=== PATIENT | female | born 1985 | race Caucasian/White ===

== ENCOUNTER 2019-06-14 20:11 | Emergency (ER) | payer SELFPAY ==
[2019-06-14 21:09] LABS: Urine Bacteria <20 /HPF (<20)
[2019-06-14 21:10] LABS: Urine Blood 1+ (NEG); Urine Glucose NEGATIVE (NEG); Urine Protein NEGATIVE (NEG)
[2019-06-14] MEDS ORDERED: ERYTHROMYCIN 1 APPL/1 GM TUBE ONE (21:10)
--- NOTE | 2019-06-14 21:29 | EDPHYS ---
Physician Documentation [facility] Name: Padma Mauricio Age: 34 yrs Sex: Female : 1985 Arrival Date: 06/14/2019 Time: 20:14 Bed 5 Private MD: TINA Physician Curtis Hawkins HPI: 06/14 20:35 This 34 yrs old Female presents to ER via Ambulatory with complaints of Flu snw Symptoms. 20:35 Onset: The symptoms/episode began/occurred suddenly, today. Associated signs and snw symptoms: Pertinent positives: congestion, cough, fever, nasal discharge, sore throat. Modifying factors: The patient symptoms are alleviated by nothing. The patient has not experienced similar symptoms in the past. The patient has not recently seen a physician. 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 - Social history:: Smoking status: Patient/guardian denies using tobacco, Stopped _ months ago 2. - Ebola Screening: : Patient negative for fever greater than or equal to 101.5 degrees Fahrenheit, and additional compatible Ebola Virus Disease symptoms Patient denies exposure to infectious person Patient denies travel to an Ebola-affected area in the 21 days before illness onset No symptoms or risks identified at this time. ROS: 20:34 ENT: Negative for injury, pain, and positive for congestion and discharge, Neck: snw Negative for injury, pain, and swelling, Cardiovascular: Negative for chest pain, palpitations, and edema, Respiratory: Negative for shortness of breath, cough, wheezing, and pleuritic chest pain, Abdomen/GI: Negative for abdominal pain, nausea, vomiting, diarrhea, and constipation, Back: Negative for injury and pain, : Negative for injury, bleeding, discharge, and swelling, MS/Extremity: Negative for injury and deformity, Skin: Negative for injury, rash, and discoloration, Neuro: Negative for headache, weakness, numbness, tingling, and seizure, Psych: Negative for depression, anxiety, suicide ideation, homicidal ideation, and hallucinations. 20:34 Constitutional: Positive for body aches, fatigue, fever, malaise. 20:34 Eyes: Positive for matting, redness, of the inner aspect of conjuctiva of right eye, (hx of contact use). Exam: 20:32 Head/Face: Normocephalic, atraumatic. snw 20:32 ENT: Nares patent. No nasal discharge, no septal abnormalities noted. Tympanic membranes are normal and external auditory canals are clear. Oropharynx with no redness, swelling, or masses, exudates, or evidence of obstruction, uvula midline. Mucous membranes moist, thickened, congested Neck: Trachea midline, no thyromegaly or masses palpated, and no cervical lymphadenopathy. Supple, full range of motion without nuchal rigidity, or vertebral point tenderness. No Meningismus. Chest/axilla: Normal chest wall appearance and motion. Nontender with no deformity. No lesions are appreciated. Cardiovascular: Regular rate and rhythm with a normal S1 and S2. No gallops, murmurs, or rubs. Normal PMI, no JVD. No pulse deficits. Respiratory: Lungs have equal breath sounds bilaterally, clear to auscultation and percussion. No rales, rhonchi or wheezes noted. No increased work of breathing, no retractions or nasal flaring. Abdomen/GI: Soft, non-tender, with normal bowel sounds. No distension or tympany. No guarding or rebound. No evidence of tenderness throughout. Back: No spinal tenderness. No costovertebral tenderness. Full range of motion. Skin: Warm, dry with normal turgor. Normal color with no rashes, no lesions, and no evidence of cellulitis. MS/ Extremity: Pulses equal, no cyanosis. Neurovascular intact. Full, normal range of motion. Neuro: Awake and alert, GCS 15, oriented to person, place, time, and situation. Cranial nerves II-XII grossly intact. Motor strength 5/5 in all extremities. Sensory grossly intact. Cerebellar exam normal. Normal gait. Psych: Awake, alert, with orientation to person, place and time. Behavior, mood, and affect are within normal limits. 20:32 Constitutional: The patient appears alert, awake, uncomfortable. 20:32 Eyes: Extraocular movements: no acute changes, Conjunctiva: injected, in the right eye, Corneas: are normal, Lids and lashes: appear normal. Vital Signs: 20:32 Weight 54.43 kg (R); Height 5 ft. 3 in. (160.02 cm) (R); Pain 8/10; ca1 20:35 BP 129 / 80; Pulse 86; Resp 16; Temp 99.0(O); Pulse Ox 100% on R/A; jb4 20:32 Body Mass Index 21.26 (54.43 kg, 160.02 cm) ca1 MDM: 20:27 Patient medically screened. snw 20:31 Data reviewed: vital signs, nurses notes. Data interpreted: Pulse oximetry: on room air snw is 99 %. Interpretation: normal. Counseling: I had a detailed discussion with the patient and/or guardian regarding: the historical points, exam findings, and any diagnostic results supporting the discharge/admit diagnosis, lab results, the need for outpatient follow up, to return to the emergency department if symptoms worsen or persist or if there are any questions or concerns that arise at home. 21:33 Special discussion: Based on the history and exam findings, there is no indication for snw further emergent testing or inpatient evaluation. I discussed with the patient/guardian the need to see the primary care provider for further evaluation of the symptoms. ED course: Tamiflu rx discussed. Pt declines rx.. 06/14 20:16 Order name: Flu; Complete Time: 21:04 snw 06/14 20:16 Order name: Urine Culture snw 06/14 20:16 Order name: Urine Microscopic Only; Complete Time: 21:16 snw 06/14 21:04 Order name: Urine Dipstick--Ancillary (enter results); Complete Time: 21:16 mw2 06/14 21:04 Order name: Urine --Ancillary (enter results); Complete Time: 21:16 mw2 06/14 20:16 Order name: Urine Dipstick-Ancillary (obtain specimen); Complete Time: 20:59 snw Administered Medications: 21:34 Drug: ERYTHromycin Ointment 1 application Route: Ophthalmic; Site: right eye; jb4 Disposition: 06/15 07:46 Co-signature as Attending Physician, Curtis Hawkins MD I agree with the assessment and ricky plan of care. Disposition: 06/14/19 21:28 Discharged to Home. Impression: Influenza due to identified novel influenza A virus. - Condition is Stable. - Discharge Instructions: Bacterial Conjunctivitis, Fever, Adult, Influenza, Adult, Rehydration, Adult. - Prescriptions for promethazine 25 mg Oral Tablet - take 1 tablet by ORAL route every 6 hours As needed; 20 tablet. Mobic 7.5 mg Oral Tablet - take 1 tablet by ORAL route once daily take with food; 20 tablet. - Work release form, Medication Reconciliation Form, Thank You Letter, Antibiotic Education, Prescription Opioid Use form. - Follow up: Emergency Department; When: As needed; Reason: Worsening of condition. Follow up: Private Physician; When: 2 - 3 days; Reason: Recheck today's complaints, Continuance of care, Re-evaluation by your physician. Signatures: Dispatcher [employer] EDCurtis Haney MD MD cha Therrien, Shelly, BRAIN WAVE TECHNICIAN-C BRAIN WAVE TECHNICIAN-Csnw Mickey Prajapati RN RN jb4 Katie Melendez RN RN ca1 Corrections: (The following items were deleted from the chart) 06/14 21:42 21:28 06/14/2019 21:28 Discharged to Home. Impression: Influenza due to identified jb4 novel influenza A virus. Condition is Stable. Discharge Instructions: Bacterial Conjunctivitis. Forms are Work release form, Medication Reconciliation Form, Thank You Letter, Antibiotic Education, Prescription Opioid Use. Follow up: Emergency Department; When: As needed; Reason: Worsening of condition. Follow up: Private Physician; When: 2 - 3 days; Reason: Recheck today's complaints, Continuance of care, Re-evaluation by your physician. snw
--- NOTE | 2019-06-14 21:29 | ER ---
Nurse's Notes [facility] Name: Padma Mauricio Age: 34 yrs Sex: Female : 1985 Arrival Date: 06/14/2019 Time: 20:14 Bed 5 Private MD: Diagnosis: Influenza due to identified novel influenza A virus Presentation: 06/14 20:30 Presenting complaint: Patient states: FLU s/s just started today. Woke up with an itch ca1 in the throat. Fever at 102F. Advil taken at 945pm. Transition of care: patient was not received from another setting of care. Onset of symptoms was June 14, 2019. Risk Assessment: Do you want to hurt yourself or someone else? Patient reports no desire to harm self or others. Initial Sepsis Screen: Does the patient meet any 2 criteria? No. Patient's initial sepsis screen is negative. Does the patient have a suspected source of infection? No. Patient's initial sepsis screen is negative. Care prior to arrival: None. 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 - Social history:: Smoking status: Patient/guardian denies using tobacco, Stopped _ months ago 2. - Ebola Screening: : Patient negative for fever greater than or equal to 101.5 degrees Fahrenheit, and additional compatible Ebola Virus Disease symptoms Patient denies exposure to infectious person Patient denies travel to an Ebola-affected area in the 21 days before illness onset No symptoms or risks identified at this time. Screenin:17 Abuse screen: Denies threats or abuse. Nutritional screening: No deficits noted. ea Tuberculosis screening: No symptoms or risk factors identified. Fall Risk None identified. Assessment: 20:45 General: Appears in no apparent distress. uncomfortable, Behavior is calm, cooperative, jb4 appropriate for age. Pain: Denies pain. Neuro: Level of Consciousness is awake, alert, obeys commands, Oriented to person, place, time, situation. Cardiovascular: Patient's skin is warm and dry. Respiratory: Airway is patent Respiratory effort is even, unlabored, Respiratory pattern is regular, symmetrical. GI: No signs and/or symptoms were reported involving the gastrointestinal system. : No signs and/or symptoms were reported regarding the genitourinary system. EENT: No signs and/or symptoms were reported regarding the EENT system. Derm: Skin is intact, Skin is pink, warm \T\ dry. Musculoskeletal: Circulation, motion, and sensation intact. Range of motion: intact in all extremities. 21:42 Reassessment: Patient appears in no apparent distress at this time. Patient and/or jb4 family updated on plan of care and expected duration. Pain level reassessed. Patient is alert, oriented x 3, equal unlabored respirations, skin warm/dry/pink. Vital Signs: 20:32 Weight 54.43 kg (R); Height 5 ft. 3 in. (160.02 cm) (R); Pain 8/10; ca1 20:35 BP 129 / 80; Pulse 86; Resp 16; Temp 99.0(O); Pulse Ox 100% on R/A; jb4 20:32 Body Mass Index 21.26 (54.43 kg, 160.02 cm) ca1 ED Course: 20:14 Patient arrived in ED. es 20:16 Shavon Liriano FNP-C is PHCP. snw 20:16 Curtis Hawkins MD is Attending Physician. snw 20:27 Mickey Prajapati, KAT is Primary Nurse. jb4 20:31 Triage completed. ca1 20:32 Arm band placed on right wrist. ca1 20:37 Flu Sent. jb4 20:59 Urine Culture Sent. jb4 20:59 Flu Sent. jb4 20:59 Urine Microscopic Only Sent. jb4 21:17 Patient has correct armband on for positive identification. Bed in low position. Call ea light in reach. Side rails up X2. 21:42 No provider procedures requiring assistance completed. Patient did not have IV access jb4 during this emergency room visit. Administered Medications: 21:34 Drug: ERYTHromycin Ointment 1 application Route: Ophthalmic; Site: right eye; jb4 Outcome: 21:28 Discharge ordered by . snw 21:42 Discharged to home ambulatory. jb4 21:42 Condition: stable 21:42 Discharge instructions given to patient, Instructed on discharge instructions, follow up and referral plans. medication usage, Demonstrated understanding of instructions, follow-up care, medications, Prescriptions given X 3. 21:42 Patient left the ED. jb4 Signatures: Shavon Liriano, PAPER WOOD CUTTER-C PAPER WOOD CUTTER-Csnw Kirsty Flannery James RN RN jb4 Roopa Flores, RN RN Katie Kelley RN RN ca1
== END 2019-06-14 21:42 | disposition home or self-care (01) ==
LOC: ER 20:11
DX: J10.1 Influenza due to other identified influenza virus with other respiratory manifestations (principal)
CPT/HCPCS: 81003; 81015; 81025; 87086; 87088; 87804; 99283

== ENCOUNTER 2024-05-01 00:49 | Emergency (ER) | payer BC, SELFPAY ==
--- OUTSIDE RECORDS SUMMARY | 2024-05-01 00:52 | XMS REPORT | Continuity of Care Document ---
Author Name Unknown Address [address] [place] [address] [facility] thconnect Address [address] [place] [address] Care Team Providers Care Designer Writer Name Role Phone KIRSTEN SÁNCHEZ Primary Care Physician Unavaila KIRSTEN Sharpe Attending Clinician Unavailable JERRI FOSTER Attending Clinician Unavailable Doctor Unassigned, [place] Attending Clinician U Kirsten Sarmiento Attending Clinician [phone] Lab, Ang - Db Attending Clinician Unavailable Mimi Marks Attending Clinician [phone] Unknown, Attending Attending Clinician Unavailab MIMI Neil Attending Clinician Unavailable FREDY WAGONER Attending Clinician Unavailable EbrahiFredy Swartz Attending Clinician [phone] Doctor Unassigned, [place] Attending Clinician U Miguel Mcmillan DO Attending Clinician [phone] Lab, Adc Fam Pob I Attending Clinician Unavailab le Payers Payer Name Policy Type Policy Number Effective Date Expirati on Date Source [facility] [id number] 00:00:00 BALJIT [id number] 2023 00:00:00 Problems Condition Name Condition Details Condition Category Status Onset Date Resolution Date Last Treatment Date Treating Clinician Comments Source No known active problems No known active problems Disease [facility] Allergies, Adverse Reactions, Alerts Allergy Name Allergy Type Status Severity Reaction(s) Onset Date Inactive Date Treating Clinician Comments Source NO KNOWN ALLERGIE S Drug Class Active [facility] Social History Social Habit Start Date Stop Date Quantity Comments Source Sexual orientation [facility] History of Social function 2023-12-03 00:00:00 2023-12-03 00:00:[address] [facility] [place] Alcoholic beverage intake 2023-12-03 00:00:00 2023-12-03 00:00:00 Ex-drinker (finding) [facility] [place] [place] Tobacco use and exposure 2023-12-03 00:00:00 2023-12-03 00:00:00 Smokeless tobacco non-user [facility] [place] [place] Exposure to SARS-CoV-2 (event) 2022-10-09 00:00:00 2022-10-19 13:27:[address] [facility] [place] [place] Tobacco Comment 2022-09-18 00:00:00 2022-09-18 00:00:00 social, not daily [facility] [place] [place] Alcohol intake 2021-09-06 00:00:00 2021-09-06 00:00:00 Ex-drinker (finding) [facility] [place] [place] History of tobacco use 2018-08-24 00:00:[address] [facility] [place] [place] Sex assigned at 1985 00:00:00 1985 00:00:[address] [facility] [place] [place] Smoking Status Start Date Stop Date Source Ex-smoker 2023-12-03 00:00:00 2023-12-03 00:00:00 [facility] Medications Ordered Medication Name Filled Medication Name Start Date Stop Date Current Medication? Ordering Clinician Indication Dosage Frequency Signature (SIG) Comments Components Source Venlafaxine 75 mg tablet 12-02 14:48: 05 12-02 00:00 :00 No Take by mouth. [facility] mirtazapine 15 mg tablet 12-02 14:48: 05 12-02 00:00 :00 No 15mg Take 1 tablet by mouth at bedtime. [facility] mirtazapine 15 mg tablet 12-02 00:00: 00 Yes [id number] 15mg Take 1 tablet by mouth at bedtime. [facility] Venlafaxine 75 mg tablet 12-02 00:00: 00 Yes [id number] 75mg Take 1 tablet by mouth in the morning. [facility] methylPREDN ISolone (MEDROL, ZOYA,) 4 mg tablets 12-02 00:00: 00 Yes [id number] Take by mouth SEE-INSTRU CTIONS. follow package directions [facility] amoxicillin 500 mg capsule 10-19 00:00: 00 10-30 04:59 :00 No [id number] 500mg Take 1 capsule by mouth in the morning and 1 capsule in the evening. Do all this for 10 days. [facility] BUSPIRONE 5 mg tablet 2021-05 00:00: 00 12-02 00:00 :00 No [id number] 5mg TAKE 1 TABLET BY MOUTH 2 (TWO) TIMES DAILY NEEDED (ANXIETY). FOLLOW-UP FOR REFILLS [facility] busPIRone 5 mg tablet 2021-05 00:00: 00 03-28 00:00 :00 No [id number] 5mg Take 1 tablet by mouth 2 (two) times daily as needed (anxiety). Follow-up for refills [facility] SERTraline 50 mg tablet 12-21 00:00: 00 12-02 00:00 :00 No [id number] 50mg Take 1 tablet by mouth in the morning. [facility] busPIRone 5 mg tablet 12-21 00:00: 00 02-27 00:00 :00 No [id number] 5mg Take 1 tablet by mouth 2 (two) times daily as needed (anxiety). [facility] SERTRALINE 50 mg tablet 12-17 00:00: 00 12-21 00:00 :00 No [id number] TAKE 1/2 TAB PO DAILY X 1 WEEK. THEN INCREASE TO 1 TAB PO DAILY. AVOID ABRUPT CESSATION. FOLLOW-UP FOR REFILLS [facility] SERTraline (ZOLOFT) 50 mg tablet 4-14 00:00: 00 10-30 00:00 :00 No [id number] Take 1/2 tab po daily x 1 week. Then increase to 1 tab PO daily. Avoid abrupt cessation. [facility] LOESTRIN FE 1 mg-20 mcg (21)/75 mg (7) tablet 2-21 00:00: 00 12-02 00:00 :00 No Take 1 active tablet orally once daily at the same time. Take active pills only. [facility] Immunizations Ordered Immunization Name Filled Immunization Name Date Status Comments Source TDAP 2014-08-24 00:00:[address] [facility] [place] [place] TDAP 2014-08-24 00:00:[address] [facility] [place] [place] TDAP 2014-08-24 00:00:[address] [facility] [place] [place] TDAP 2014-08-24 00:00:[address] [facility] [place] [place] TDAP 2014-08-24 00:00:[address] [facility] [place] [place] TDAP 2014-08-24 00:00:[address] [facility] [place] [place] TDAP 2014-08-24 00:00:[address] [facility] [place] [place] TDAP 2014-08-24 00:00:[address] [facility] [place] [place] TDAP Unknown Completed [facility] [place] [place] TDAP Unknown Completed [facility] [place] [place] TDAP Unknown Completed [facility] [place] [place] TDAP Unknown [facility]pleted [facility] [place] TDAP Unknown [facility]pleted [facility] [place] TDAP Unknown Completed [facility] [place] TDAP Unknown Completed [facility] [place] [place] TDAP Unknown Completed [facility] [place] [place] TDAP Unknown Completed [facility] [place] [place] Vital Signs Vital Name Observation Time Observation Value Comments S ource Systolic blood pressure 2023-12-03 19:13:00 111 mm[Hg] [facility] Diastolic blood pressure 2023-12-03 19:13:00 70 mm[Hg] [facility] Heart rate 2023-12-03 19:13:00 62 /min [facility] Body temperature 2023-12-03 19:13:[address] [facility] [place] [place] Respiratory rate 2023-12-03 19:13:00 18 /min [facility] [place] [place] Body height 2023-12-03 19:13:00 157.5 cm [facility] Body weight 2023-12-03 19:13:00 66.724 kg [facility] BMI 2023-12-03 19:13:00 26.90 kg/m2 [facility] Oxygen saturation in Arterial blood by Pulse oximetry 2023-12-03 19:13:00 99 /min [facility] Systolic blood pressure 2022-10-19 18:47:00 113 mm[Hg] [facility] Diastolic blood pressure 2022-10-19 18:47:00 72 mm[Hg] [facility] Heart rate 2022-10-19 18:47:00 84 /min [facility] Body temperature 2022-10-19 18:47:[address] [facility] [place] [place] Respiratory rate 2022-10-19 18:47:00 16 /min [facility] [place] [place] Body height 2022-10-19 18:47:00 160 cm [facility] Body weight 2022-10-19 18:47:00 59.784 kg [facility] BMI 2022-10-19 18:47:00 23.35 kg/m2 [facility] Oxygen saturation in Arterial blood by Pulse oximetry 2022-10-19 18:47:00 99 /min [facility] Systolic blood pressure 2022-09-18 14:53:00 111 mm[Hg] [facility] Diastolic blood pressure 2022-09-18 14:53:00 74 mm[Hg] [facility] Heart rate 2022-09-18 14:53:00 70 /min [facility] Body temperature 2022-09-18 14:53:[address] [facility] [place] [place] Respiratory rate 2022-09-18 14:53:00 16 /min [facility] [place] [place] Body height 2022-09-18 14:53:00 160 cm [facility] Body weight 2022-09-18 14:53:00 62.778 kg [facility] BMI 2022-09-18 14:53:00 24.52 kg/m2 [facility] Oxygen saturation in Arterial blood by Pulse oximetry 2022-09-18 14:53:00 100 /min [facility] Systolic blood pressure 2021-12-21 12:05:00 120 mm[Hg] [facility] Diastolic blood pressure 2021-12-21 12:05:00 81 mm[Hg] [facility] Heart rate 2021-12-21 12:05:00 60 /min [facility] Body height 2021-12-21 12:05:00 160 cm [facility] Body weight 2021-12-21 12:05:00 58.514 kg [facility] BMI 2021-12-21 12:05:00 22.85 kg/m2 [facility] Oxygen saturation in Arterial blood by Pulse oximetry 2021-12-21 12:05:00 99 /min [facility] Procedures Procedure Date / Time Performed Performing Clinician Source VITAMIN B6, PLASMA 2023-12-03 20:10:00 Kirsten Sánchez [facility] [place] [place] MAGNESIUM 2023-12-03 20:10:00 Kirsten Sánchez [facility] VITAMIN B12, LEVEL 2023-12-03 20:10:00 Kirsten Sánchez [facility] [place] [place] FOLATE 2023-12-03 20:10:00 Kirsten Sánchez [facility] COMP. METABOLIC PANEL ([id number]) 2023-12-03 20:10:00 Kirsten Sánchez [facility] [place] [place] LIPID PANEL ([id number])(TOTAL CHOLESTEROL, TRIGLYCERIDES, HDL) 2023-12-03 20:10:00 Kirsten Sánchez [facility] [place] [place] CBC WITH DIFF 2023-12-03 20:10:00 Kirsten Sánchez [facility] GLYCOSYLATED HEMOGLOBIN (A1C) 2023-12-03 20:10:00 Kirsten Sánchez [facility] [place] [place] VITAMIN D, 25-OH 2023-12-03 20:10:00 Kirsten Sánchez [facility] [place] [place] POCT MOLECULAR STREP 2022-10-19 18:45:00 Unknown, Caden garcia [facility] [place] [place] XR HAND 3+ VW RIGHT 2022-09-18 15:21:[address] [facility] [place] [place] ASSIGNMENT OF BENEFITS 2022-09-18 14:44:28 Docto r Unassigned, [place] [facility] [place] [place] Encounters Start Date/Time End Date/Time Encounter Type Admission Type Attending [facility] Care Department Encounter ID Source 2021-03-26 08:34:59 Emergency [facility] [id number] [facility] 2024-04-15 16:30:00 2024-04-15 16:30:00 Outpatient R KIRSTEN SÁNCHEZ [facility] [id number] [facility] 2024-04-12 13:40:00 2024-04-12 13:40:00 Outpatient R JERRI FOSTER [facility] [id number] [facility] 2023-12-04 00:00:00 2024-01-10 18:25:03 Patient Secure Msg Doctor Unassigned, [place] Doctor Unassigned, [place] [facility] 1.840.114 350.1.13.10 4.2.7.2.686 [id number] [facility] 2023-12-09 00:00:00 2024-01-10 18:20:03 Patient Secure Msg Doctor Unassigned, [place] Doctor Unassigned, [place] [facility] 1.840.114 350.1.13.10 4.2.7.2.686 [id number] [facility] 2023-12-11 00:00:00 2023-12-17 08:20:10 Telephone Kirsten S[facility]chez [facility] 1.84.114 350.1.13.10 4.2.7.2.686 [id number] [facility] 2023-12-11 00:00:00 2023-12-17 08:20:03 Patient Secure g Kirsten Sánchez [facility] 1.2840.114 350.1.13.10 4.2.7.2.686 [id number] [facility] 2023-12-08 00:00:00 2023-12-08 10:46:59 Patient Secure g Kirsten S[facility]chez [facility] 1.2840.114 350.1.13.10 4.2.7.2.686 [id number] [facility] 2023-12-03 15:18:10 2023-12-03 23:59:00 Outpatient R KIRSTEN SÁNCHEZ [facility] [id number] [facility] 2023-12-03 15:18:10 2023-12-03 23:59:00 Hospital Encounter Kirsten [facility]chez [facility] 1.2840.114 350.1.13.10 4.2.7.2.686 [id number] [facility] 2023-12-03 15:00:00 2023-12-03 15:13:05 Heliarc Welder Visit Lab, Ang - Db Kirsten Sánchez [facility] 1.2840.114 350.1.13.10 4.2.7.2.686 [id number] [facility] 2023-12-03 14:30:00 2023-12-03 15:00:18 Office Visit Kirsten Sánchez [facility] 1.2840.114 350.1.13.10 4.2.7.2.686 [id number] [facility] 2022-10-19 14:20:00 2022-10-19 14:40:00 Urgent Care Mimi Grossman Unknown, Attending [facility] 1.84.114 350.1.13.10 4.2.7.2.686 [id number] [facility] 2022-10-19 14:20:00 2022-10-19 14:08:07 Outpatient R MIMI GROSSMAN [facility] [id number] [facility] 2022-09-18 10:04:19 2022-09-18 23:59:00 Outpatient R FREDY WAGONER [facility] [id number] [facility] 2022-09-18 10:04:19 2022-09-18 23:59:00 Hospital Encounter Andres Wagoneradiel [facility] 1.84114 350.1.13.10 4.2.7.2.686 [id number] [facility] 2022-09-18 10:00:00 2022-09-18 10:20:00 Urgent Care Fredy Wagoner Unknown, Attending [facility] 1.84.114 350.1.13.10 4.2.7.2.686 [id number] [facility] 2022-09-18 00:00:00 2022-09-18 00:00:00 Orders Only Doctor Unassigned, [place] [facility] 1.84114 350.1.13.10 4.2.7.2.686 [id number] [facility] 2022-03-22 00:00:00 2022-03-22 00:00:00 [facility] 1.840.114 350.1.13.10 4.2.7.2.686 [id number] [facility] 2022-02-20 00:00:00 2022-02-20 00:00:00 Refill Kirsten Sánchez [facility] 1.2840.114 350.1.13.10 4.2.7.2.686 [id number] [facility] 2022-01-12 00:00:00 2022-01-12 00:00:00 Refill Kirsten Sánchez [facility] 1.114 350.1.13.10 4.2.7.2.686 [id number] [facility] 2021-12-21 07:00:00 2021-12-21 07:35:54 Outpatient R KIRSTEN SÁNCHEZ [facility] [id number] [facility] 2021-12-21 07:00:00 2021-12-21 07:35:54 Office Visit Vero Sáncheze Kwasi [facility] 1.2114 350.1.13.10 4.2.7.2.686 [id number] [facility] 2021-12-13 00:00:00 2021-12-13 00:00:00 Refill [facility] 1.2.114 350.1.13.10 4.2.7.2.686 [id number] [facility] 2021-12-06 00:00:00 2021-12-06 00:00:00 Refill Vero Sáncheze Kwasi [facility] 1.0.114 350.1.13.10 4.2.7.2.686 [id number] [facility] 2021-11-09 08:30:00 2021-11-09 08:30:00 Outpatient R PRINCESSCATHI ROPERLIE [facility] [id number] [facility] 2021-10-30 00:00:00 2021-10-30 00:00:00 Refill Princess Kirsten Villalpando [facility] 1.840.114 350.1.13.10 4.2.7.2.686 [id number] [facility] 2021-09-12 00:00:00 2021-09-12 00:00:00 Patient Secure Msg Doctor Unassigned, [place] [facility] 1.84.114 350.1.13.10 4.2.7.2.686 [id number] [facility] 2021-09-06 09:00:00 2021-09-06 09:15:00 Heliarc Welder Visit Lab, Ang - Db PrincessKirsten roper [facility] 1.840.114 350.1.13.10 4.2.7.2.686 [id number] [facility] 2021-09-06 08:00:00 2021-09-06 08:57:35 Outpatient R PRINCESS KIRSTEN [facility] [id number] [facility] 2021-09-06 08:00:00 2021-09-06 08:57:35 Outpatient R PRINCESS KIRSTEN [facility] [id number] [facility] 2021-09-06 08:00:00 2021-09-06 08:57:35 Office Visit Princess Kirsten Villalpando [facility] 1.840.114 350.1.13.10 4.2.7.2.686 [id number] [facility] 2020-12-08 03:49:00 2020-12-08 05:23:00 Emergency Miguel Rodriguez [facility] 1..840.114 350.1.13.10 4.2.7.2.686 [id number] [facility] 2020-06-28 10:20:00 2020-06-28 10:20:00 Outpatient R [facility] [id number] [facility] 2020-06-14 10:20:12 2020-06-14 10:40:12 Laboratory Only Lab, Adc Fam Pob I Kirsten Sánchez [facility] Office [facility] 1..840.114 350.1.13.10 4.2.7.2.686 [id number] [facility] 2020-06-14 10:40:00 2020-06-14 10:40:00 Outpatient R KIRSTEN SÁNCHEZ [facility] [id number] [facility] 2020-01-17 00:00:00 2020-01-17 00:00:00 Letter (Out) Doctor Unassigned, [place] [facility] 1..840.114 350.1.13.10 4.2.7.2.686 [id number] [facility] Results Test Description Test Time Test Comments Results Result Co mments Source [facility] [place]
[2024-05-01] MEDS ORDERED: LORazepam 2 MG/ML VIAL ONE (01:12)
[2024-05-01] MEDS ORDERED: NA CHLORIDE 0.9% 1,000 ML ONE (01:13)
[2024-05-01] MEDS ORDERED: MORPHINE 4 MG/ML SYR ONE (01:13)
[2024-05-01 01:17] LABS: Absolute Lymphocytes (CBC) 1.5 K/uL (0.7-4.9); Absolute Monocytes 0.3 K/uL (0.1-1.3); Absolute Neutrophil 2.8 K/uL (1.8-8.0); Basophils % 0.8 % (0-1.3); Eosinophils % 0.2 % (0-4.4); Hematocrit 35.6 % (36.0-45.0); Hemoglobin 12.1 g/dL (12.0-15.0); Lymphocytes % 31.9 % (15.3-44.8); MCH 32.1 pg (27.0-35.0); MCV 94.6 fL (80-100); MPV 8.5 fL (7.6-11.3); Monocytes % 5.9 % (3.3-12.3); Neutrophils % 61.2 % (41.7-73.7); Nucleated Red Blood Cells % 0.2 % (0-0); Platelets 179 thou/uL (152-406); RBC Red Blood Cell Count 3.77 M/uL (3.86-4.86); Red Cell Distribution Width 13.3 % (12.1-15.2)
[2024-05-01 01:35] LABS: Anion Gap 10.2 mEq/L (5.0-15.0); Potassium 3.2 mEq/L (3.5-5.1)
[2024-05-01 02:43] LABS: Blood Morphology Comment NOT SEEN (NOT SEEN); Platelet Estimate ADEQ; White Blood Cell Scan OK (OK)
[2024-05-01] MEDS ORDERED: HYDROCODONE/APAP 10/325 TAB ONE ×2 (02:43→06:15)
[2024-05-01] MEDS ORDERED: methocarbamoL 750 MG TAB ONE ×2 (02:43→06:15)
--- NOTE | 2024-05-01 03:56 | RAD REPORT ---
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 COMPARISON: None. FINDINGS: 2 X-ray views of the right femur (frontal and lateral projections) were performed. Bones: No areas of acute bony injuries were demonstrated. Soft tissues: No significant soft tissue swelling. Joints: No gross articular abnormality is identified. Others: There are no gross intraosseous lesions. No periosteal reaction were seen. IMPRESSION: Unremarkable examination of the right femur. Electronically signed by: Raul Monroy MD 05/01/2024 03:52 AM ACCOUNTS PAYABLES CLERK Due to temporary technical issues with the PACS/[employer] reporting system, reports are being ivet d by the in-house radiologist without review as a courtesy to ensure prompt reporting the interpreting radiologist is fully responsible for the content of the report. Transcribed Date/Time: 05/01/2024 3:55 AM
--- NOTE | 2024-05-01 03:59 | RAD REPORT ---
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 COMPARISON: XR Chest 04/12/2024. PROCEDURE: Axial images through the chest, abdomen and pelvis were generated utilizing 2 mm slice thickness at 2 mm interval reconstruction without the administration of IV contrast. In addition multiplanar reformats in the coronal and sagittal plane were obtained and reviewed. An individualized dose optimization technique, Automated Exposure Control, was utilized for the perfo rmed procedure. FINDINGS: CHEST: Lower neck: Visualized thyroid gland and soft tissues are normal. No adenopathy. Lungs: The lung parenchyma demonstrate to be clear. No evidence of airspace or interstitial process. No significant pulmonary nodules and/or masses identified. No focal areas of consolidation. Airways: The trachea mainstem bronchus demonstrate to be unremarkable. Pleural: There are no pleural effusion. No evidence for pneumothorax. Hemidiaphragms are normally pos itioned. Mediastinum and lymph nodes: No significant mediastinal and/or hilar lymphadenopathy. The axillary re gions demonstrate to be clear. Heart: Normal size. No pericardial thickening or effusion. Coronary: No significant coronary artery calcifications. Aorta: The thoracic aorta demonstrate to be within normal limits. No evidence for aneurysm. Pulmonary arteries: The pulmonary arteries were not evaluated due to lack of IV contrast. Osseous structures and chest wall: The visualized portions of the clavicles, humeral heads and bilate ral scapulas demonstrate to be within normal limits. No evidence for acute bony injuries. The sternum, thoracic spine, spinous process and bilateral ribs demonstrate to be within normal limit s. No evidence for acute bony injuries. There are bilateral breast implants. ABDOMEN AND PELVIS: Liver: The liver demonstrates to be normal, no focal lesions identified. No evide nce for solid organ injury.. Gallbladder: The gallbladder demonstrate to be normal. Adrenal glands: The adrenal glands demonstrate to be within normal limits. No evidence for solid orga n injury.. Pancreas: The pancreas demonstrate to be within normal limits. No evidence for solid organ injury.. Spleen: The spleen demonstrate to be within normal limits. No evidence for solid organ injury. Kidneys: The kidneys demonstrate normal uptake of contrast media. Grossly the unopacified kidneys d emonstrate to be within normal limits. There is no evidence for nephrolithiasis and/or hydronephrosis. No evidence for extravasation of contrast. No evidence for solid organ injury GI: Grossly the unopacified stomach, small bowel and large bowel demonstrate to be within normal limi ts. No evidence for bowel dilatation and/or free air. The appendix is normal. The left-sided colon demonstrate to be decompressed with no gross abnormalities. No significant peritoneal an/or mesenteri c abnormalities. : The urinary bladder demonstrate to be well distended with no gross abnormalities. Genitalia: The uterus demonstrate to be within normal limits. There are normal adnexal structures. Abdominal aorta: The aorta demonstrate to be within normal limits. Retroperitoneum: There is no retroperitoneal lymphadenopathy. No evidence for ascites and/or signific ant retroperitoneal hemorrhage. Bones: The vertebral bodies of the lumbar spine demonstrate to be within normal limits. No evidence f or acute fractures. The spinous processes, transverse processes demonstrate to be unremarkable. The sacrum, sacroiliac joint, iliac bones, superior and inferior pubic rami as well as bilateral hip join ts demonstrate to be within normal limits. No evidence for acute bony injuries. Soft tissues: The soft tissues demonstrate to be within normal limits. No symptoms superficial contus ion and/or hematomas. IMPRESSION: No evidence for significant acute intrathoracic an/or intraabdominal process allowing for the lack of IV contrast. No evidence for solid organ injury on this noncontrast CT examination of the chest, abdomen and pelvi s. Electronically signed by: Raul Monroy MD 05/01/2024 03:52 AM [facility] Due to temporary technical issues with the PACS/eVestment reporting system, reports are being ivet d by the in-house radiologist without review as a courtesy to ensure prompt reporting the interpreting radiologist is fully responsible for the content of the report. Transcribed Date/Time: 05/01/2024 3:59 AM
--- NOTE | 2024-05-01 04:06 | ER ---
Nurse's Notes [facility] Name: Padma Calabrese Age: 39 yrs Sex: Female : 1985 Arrival Date: 05/01/2024 Time: 00:49 Bed 6 Private MD: Diagnosis: Contusion of hip;Acute lumbar contusion, acute right buttock contusion, acute fall at home Presentation: 05/01 00:52 Chief complaint: Patient states: was placing up natanael lights in the house, fell al5 from standing on chair, landed on R hip. c/o severe R hip pain. Care prior to arrival: Medication(s) given: 100 mcg fentanyl IV initiated. 20 GA, in the left hand. Mechanism of Injury: Fall out of chair. Trauma event details: Injury occurred in the [facility], Injury occurred: at home. Injury occurred: May 01, 2024. 00:52 Acuity: ELLIS 3 al5 00:52 Method Of Arrival: EMS: [facility] al5 00:59 Coronavirus screen: At this time, the client does not indicate any symptoms associated al5 with coronavirus-19. Ebola Screen: No symptoms or risks identified at this time. Initial Sepsis Screen: Does the patient meet any 2 criteria? No. Patient's initial sepsis screen is negative. Does the patient have a suspected source of infection? No. Patient's initial sepsis screen is negative. Risk Assessment: Do you want to hurt yourself or someone else? Patient reports no desire to harm self or others. Onset of symptoms was May 01, 2024. Triage Assessment: 00:58 General: see trauma assessment. al5 CONTACT OFFICER: 01:57 Not al5 Trauma Activation: Physician: ED Physician; Name: ; Notified At: ; Arrived At: Physician: General Surgeon; Name: ; Notified At: ; Arrived At: Physician: Radiology; Name: ; Notified At: ; Arrived At: Physician: Respiratory; Name: ; Notified At: ; Arrived At: Physician: Lab; Name: ; Notified At: ; Arrived At: 00:52 n/a al5 Historical: - Allergies: 00:58 No Known Allergies; al5 - PMHx: 00:58 depression; al5 - PSHx: 00:58 tubal ligation; al5 - Immunization history: Last tetanus immunization: - up to date. - Infectious Disease History:: Denies. - Social history:: Smoking status: Patient denies any tobacco usage or history of. - Family history:: not pertinent. Screenin:57 Abuse screen: Denies threats or abuse. Denies injuries from another. Nutritional al5 screening: No deficits noted. Tuberculosis screening: No symptoms or risk factors identified. 00:58 [facility] ED Fall Risk Assessment (Adult) History of falling in the last 3 months, al5 including since admission Yes- single mechanical fall (1 pt) Confusion or Disorientation No (0 pts) Intoxicated or Sedated No (0 pts) Impaired Gait No (0 pts) Mobility Assist Device Used No (0 pt) Altered Elimination No (0 pt) Score/Fall Risk Level 0 - 2 = Low Risk Oriented to surroundings, Maintained a safe environment, Hourly rounding (assess needs \T\ fall precautionary measures) done. Primary Survey: 00:55 NO uncontrolled hemorrhage observed. A: The client is awake and alert. The airway is al5 patent. The client is alert. Airway: patent, No supplemental oxygen in use on arrival. Breathing/Chest: Spontaneous respiratory effort, equal unlabored respirations, breath sounds clear bilaterally, regular pattern, symmetrical chest rise and fall. Respiratory effort: spontaneous, unlabored, Respiratory pattern: regular. Circulation: No external hemorrhage present. Regular and strong central pulse, skin warm/dry/normal color. Skin color: pink, Skin temperature: warm, dry. Disability Pupils are equal, round, reactive to light and accommodation. Client is alert. Exposure/Environment: All clothing and personal items were removed. Forensic evidence collection is not deemed to be indicated at this time. Items placed in patient belonging bag. There is no evidence of uncontrolled external bleeding. Obvious injury(ies) are noted at this time: R hip pain A warming method has been applied: A warm blanket has been provided to the patient. 01:57 Reassessment Alertness and Airway: Awake and alert. The airway is patent. Airway Patent al5 Oxygen No O2 Breathing: Spontaneous respiratory effort, equal unlabored respirations, breath sounds clear bilaterally, regular pattern with symmetrical chest rise and fall. Respiratory effort Spontaneous Unlabored Respiratory pattern Regular Circulation: No external hemorrhage noted. Regular and strong central pulse, skin warm/dry/normal color. Color [place] Temperature Warm Dry Disability: Pupils Pupils are equal, round, reactive to light and accomodation. Alert. Secondary Survey: 00:55 HEENT: No deficits noted. Gastrointestinal: No deficits noted. : No deficits noted. al5 Musculoskeletal: Reports pain in right gluteus damian and right lower back Pain is 6 out of 10 on a pain scale. Assessment: 00:53 General: Appears in no apparent distress. uncomfortable, Behavior is calm, cooperative. al5 Pain: Complains of pain in right lower back and right gluteus damian Pain currently is 6 out of 10 on a pain scale. at worst was 10 out of 10 on a pain scale. Neuro: Level of Consciousness is awake, alert, obeys commands, Oriented to person, place, time, situation. EENT: No signs and/or symptoms were reported regarding the EENT system. Cardiovascular: Capillary refill < 3 seconds Patient's skin is warm and dry. Respiratory: Airway is patent Respiratory effort is even, unlabored, Respiratory pattern is regular, symmetrical. GI: No signs and/or symptoms were reported involving the gastrointestinal system. : No signs and/or symptoms were reported regarding the genitourinary system. Derm: Skin is intact, is healthy with good turgor, Skin is pink, warm \T\ dry. normal. Musculoskeletal: abrasion to R side lower back Reports pain in right lower back and right gluteus damian Pain is 6 out of 10 on a pain scale. 01:55 Reassessment: Patient appears in no apparent distress at this time. No changes from al5 previously documented assessment. Patient and/or family updated on plan of care and expected duration. Pain level reassessed. Patient is alert, oriented x 3, equal unlabored respirations, skin warm/dry/pink. patient states she is still experiencing pain, reassured patient that the medication still has time to take effect. patient verbalized understanding. 02:57 Reassessment: Patient appears in no apparent distress at this time. Patient and/or al5 family updated on plan of care and expected duration. Pain level reassessed. Patient is alert, oriented x 3, equal unlabored respirations, skin warm/dry/pink. states as of right now her pain is fine, pain is aggravated when patient is being moved. 04:16 Reassessment: Patient appears in no apparent distress at this time. No changes from al5 previously documented assessment. Patient and/or family updated on plan of care and expected duration. Pain level reassessed. Patient is alert, oriented x 3, equal unlabored respirations, skin warm/dry/pink. patient to be discharged home. attempted to reach phone number that was provided by him 4 times with no answer, voice message left. unable to arrange any other transportation home. 04:51 Reassessment: attempted to call patient to notify him of patient discharge with al5 no answer. 05:16 Reassessment: called patient to notify of patient discharge with no answer, al5 charge nurse notified and aware. 06:20 Reassessment: Patient appears in no apparent distress at this time. No changes from al5 previously documented assessment. Patient and/or family updated on plan of care and expected duration. Pain level reassessed. Patient is alert, oriented x 3, equal unlabored respirations, skin warm/dry/pink. patient mother in law at bedside. explained to mother in law situation and the care patient has received at this facility. mother in law expressed concerns about what to do at home. reassured and explained plan of care, referrals, home remedies and prescriptions patient has been written for. patient to be discharged home with patient mother in law via wheelchair. Vital Signs: 00:55 BP 113 / 76; Pulse 69; Resp 18; Temp 97.5; Pulse Ox 97% on R/A; Weight 63.5 kg; Height al5 5 ft. 3 in. ; Pain 6/10; 01:00 BP 110 / 75; Pulse 79; Resp 19; Pulse Ox 98% on R/A; al5 01:30 BP 97 / 54; Pulse 77; Resp 19; Pulse Ox 98% on R/A; al5 02:21 BP 103 / 76; Pulse 77; Resp 18; Pulse Ox 100% on R/A; al5 02:45 BP 94 / 51; Pulse 77; Resp 16; Pulse Ox 98% on R/A; al5 03:00 BP 102 / 63; Pulse 67; Resp 18; Pulse Ox 100% on R/A; al5 03:30 BP 91 / 48; Pulse 77; Resp 17; Pulse Ox 98% on R/A; al5 04:00 BP 98 / 52; Pulse 74; Resp 16; Pulse Ox 98% on R/A; al5 04:30 BP 93 / 54; Pulse 66; Resp 17; Pulse Ox 99% on R/A; al5 05:00 BP 96 / 58; Pulse 65; Resp 18; Pulse Ox 99% on R/A; al5 05:30 BP 111 / 68; Pulse 68; Resp 16; Pulse Ox 99% on R/A; al5 06:00 BP 105 / 70; Pulse 79; Resp 18; Pulse Ox 100% on R/A; al5 00:55 Body Mass Index 24.80 (63.50 kg, 160.02 cm) al5 00:55 Pain Scale: Adult al5 01:30 patient bp cuff on R arm, patient laying on left side al5 Ronan Coma Score: 00:55 Eye Response: spontaneous(4). Motor Response: obeys commands(6). Verbal Response: al5 oriented(5). Total: 15. 04:01 Eye Response: spontaneous(4). Motor Response: obeys commands(6). Verbal Response: sp4 oriented(5). Total: 15. Trauma Score (Adult): 00:55 Eye Response: spontaneous(1); Verbal Response: oriented(1); Motor Response: obeys al5 commands(2); Systolic BP: > 89 mm Hg(4); Respiratory Rate: 10 to 29 per min(4); [place] Score: 15; Trauma Score: 12 ED Course: 00:50 Patient arrived in ED. vk 00:52 Hafsa Quick RN is Primary Nurse. al5 00:52 Larry Barnes MD is Attending Physician. al5 00:53 Triage completed. al5 00:57 Patient has correct armband on for positive identification. Bed in low position. Call al5 light in reach. Side rails up X2. Patient maintains SpO2 saturation greater than 95% on room air. 00:57 No provider procedures requiring assistance completed. Maintain EMS IV. Dressing al5 intact. Good blood return noted. Site clean \T\ dry. Gauge \T\ site: 20G L hand. Flushed with 10 mL NS. 01:00 Arm band placed on right wrist. Patient placed in the treatment room, on a stretcher. al5 01:00 Provided Education on: plan of care. al5 01:00 Thermoregulation: warm blanket given to patient. al5 02:16 CT Chest Abdomen Pelvis W/O Contrast In Process Unspecified. EDMS 02:19 Femur Right XRAY In Process Unspecified. EDMS 02:19 X-ray completed. Portable x-ray completed in exam room. Patient tolerated procedure mh1 well. 06:27 IV discontinued, intact, bleeding controlled, No redness/swelling at site. Pressure al5 dressing applied. Administered Medications: 00:56 CANCELLED (Physician Discretion): [id number] grams 100 ml IVPB once; (Note: Albumin 25% sp4 concentration) 00:56 CANCELLED (Physician Discretion): ns 0.9% 500 ml 500 ml IV at 1 bolus once; to be given sp4 as a bolus over 30 minutes 01:29 Drug: NS 0.9% IV 1000 ml IV at 1000 ml once; to be given as a bolus over 60 minutes al5 Route: IV; Rate: 1000 ml; Site: left hand; 03:30 Follow up: Response: No adverse reaction; IV Status: Completed infusion; IV Intake: al5 1000ml 01:30 Drug: morphine IVP or IV 4 mg IVP once over 4 mins Route: IVP; Infused Over: 4 mins; al5 Site: left hand; 02:57 Follow up: Response: No adverse reaction; Pain is decreased al5 01:30 Drug: Ativan IVP 2 mg IVP once Route: IVP; Site: left hand; al5 02:56 Follow up: Response: No adverse reaction; Pain is decreased al5 04:38 Drug: Lidoderm Topical Patch 5 % (700 mg/patch) 1 patches Topical once; leave on for 12 al5 hours; cover most painful area; may cut into smaller pieces Route: Topical; Site: affected area; 06:29 Follow up: Response: No adverse reaction al5 06:20 Drug: [place] PO 10 mg-325 mg 1 tabs PO once Route: PO; al5 06:29 Follow up: Response: No adverse reaction; Medication administered at discharge. al5 06:20 Drug: Methocarbamol PO 1500 mg PO once Route: PO; al5 06:29 Follow up: Response: No adverse reaction; Medication administered at discharge. al5 Medication: 00:58 VIS not applicable for this client. al5 Intake: 03:30 IV: 1000ml; Total: 1000ml. al5 00:55 n/a al5 Outcome: 04:06 Discharge ordered by sp4 06:28 Discharged to home via wheelchair, with family, al5 06:28 Condition: stable 06:28 Discharge instructions given to patient, family, Instructed on discharge instructions, follow up and referral plans. medication usage, Demonstrated understanding of instructions, follow-up care, medications, Prescriptions given X 3, 06:28 Patient's length of stay in the Emergency Department was greater than [address] results and transportationPatient's length of stay extended due to 06:29 Patient left the ED. al5 Signatures: Dispatcher [employer] EDMS Caitlin Ohara 1 Larry Barnes MD MD sp4 Mare Alba Amanda, RN RN al5 Corrections: (The following items were deleted from the chart) 00:59 00:58 Allergies: No Known Allergies; al5 al5 00:59 00:58 PMHx: depression; al5 al5 00:59 00:58 PMHx: tubal ligation; al5 al5 05:23 04:16 Reassessment: Patient appears in no apparent distress at this time. No changes al5 from previously documented assessment. Patient and/or family updated on plan of care and expected duration. Pain level reassessed. Patient is alert, oriented x 3, equal unlabored respirations, skin warm/dry/pink. patient to be discharged home. attempted to reach phone number that was provided 4 times with no answer, voice message left al5 06:30 06:20 Reassessment: Patient appears in no apparent distress at this time. No changes al5 from previously documented assessment. Patient and/or family updated on plan of care and expected duration. Pain level reassessed. Patient is alert, oriented x 3, equal unlabored respirations, skin warm/dry/pink. patient mother in law at bedside. explained to mother in law situation and the care patient has received at this facility. mother in law expressed concerns about what to do at home. reassured and explained plan of care, referrals, home remedies and prescriptions patient has been written for. al5
--- NOTE | 2024-05-01 04:06 | EDPHYS ---
Physician Documentation [facility] Name: Padma Calabrese Age: 39 yrs Sex: Female : 1985 Arrival Date: 05/01/2024 Time: 00:49 Bed 6 Private MD: ED Physician Larry Barnes HPI: 05/01 03:58 This 39 yrs old Female presents to ER via EMS with complaints of Fall Injury, sp4 Hip Injury. 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 Patient fell onto the right buttock causing moderate severe pain in the right buttock with radiation down the right leg. . BUS PERSON: 01:57 Not al5 Historical: - Allergies: 00:58 No Known Allergies; al5 - PMHx: 00:58 depression; al5 - PSHx: 00:58 tubal ligation; al5 - Immunization history: Last tetanus immunization: - up to date. - Infectious Disease History:: Denies. - Social history:: Smoking status: Patient denies any tobacco usage or history of. - Family history:: not pertinent. ROS: 04:01 Constitutional: Negative for fever, chills, and weight loss, positive moderate to sp4 severe right buttock pain with radiation down the right leg 04:01 All other systems are negative, Exam: 04:01 Constitutional: This is a well developed, well nourished patient who is awake, alert, sp4 in moderate distress secondary to pain Head/Face: Normocephalic, atraumatic. Eyes: Pupils equal round and reactive to light, extra-ocular motions intact. Lids and lashes normal. Conjunctiva and sclera are not injected. Cornea within normal limits. Periorbital areas with no swelling, redness, or edema. ENT: Nares patent. No nasal discharge, no septal abnormalities noted. Tympanic membranes are normal and external auditory canals are clear. Oropharynx with no redness, swelling, or masses, exudates, or evidence of obstruction, uvula midline. Mucous membranes moist. Neck: Trachea midline, no thyromegaly or masses palpated, and no cervical lymphadenopathy. Supple, full range of motion without nuchal rigidity, or vertebral point tenderness. Chest/axilla: Normal chest wall appearance and motion. Nontender with no deformity. No lesions are appreciated. Cardiovascular: Regular rate and rhythm with a normal S1 and S2. No gallops, murmurs, or rubs. Normal PMI, no JVD. No pulse deficits. Respiratory: Lungs have equal breath sounds bilaterally, clear to auscultation and percussion. No rales, rhonchi or wheezes noted. No increased work of breathing, no retractions or nasal flaring. Abdomen/GI: Soft, with normal bowel sounds. No distension or tympany. No guarding or rebound. No evidence of tenderness throughout. Back: No spinal tenderness. No costovertebral tenderness. Skin: Warm, dry with normal turgor. Normal color with no rashes, no lesions, and no evidence of cellulitis. MS/ Extremity: Pulses equal, no cyanosis. Neurovascular intact. Full, normal range of motion. Moderate tenderness to palpation to the right buttock Neuro: Awake and alert, GCS 15, oriented to person, place, time, and situation. Cranial nerves II-XII grossly intact. Motor strength 5/5 in all extremities. Sensory grossly intact. Psych: Awake, alert, with orientation to person, place and time. Behavior, mood, and affect are within normal limits Vital Signs: 00:55 BP 113 / 76; Pulse 69; Resp 18; Temp 97.5; Pulse Ox 97% on R/A; Weight 63.5 kg; Height al5 5 ft. 3 in. ; Pain 6/10; 01:00 BP 110 / 75; Pulse 79; Resp 19; Pulse Ox 98% on R/A; al5 01:30 BP 97 / 54; Pulse 77; Resp 19; Pulse Ox 98% on R/A; al5 02:21 BP 103 / 76; Pulse 77; Resp 18; Pulse Ox 100% on R/A; al5 02:45 BP 94 / 51; Pulse 77; Resp 16; Pulse Ox 98% on R/A; al5 03:00 BP 102 / 63; Pulse 67; Resp 18; Pulse Ox 100% on R/A; al5 03:30 BP 91 / 48; Pulse 77; Resp 17; Pulse Ox 98% on R/A; al5 04:00 BP 98 / 52; Pulse 74; Resp 16; Pulse Ox 98% on R/A; al5 04:30 BP 93 / 54; Pulse 66; Resp 17; Pulse Ox 99% on R/A; al5 05:00 BP 96 / 58; Pulse 65; Resp 18; Pulse Ox 99% on R/A; al5 05:30 BP 111 / 68; Pulse 68; Resp 16; Pulse Ox 99% on R/A; al5 06:00 BP 105 / 70; Pulse 79; Resp 18; Pulse Ox 100% on R/A; al5 00:55 Body Mass Index 24.80 (63.50 kg, 160.02 cm) al5 00:55 Pain Scale: Adult al5 01:30 patient bp cuff on R arm, patient laying on left side al5 Ronan Coma Score: 00:55 Eye Response: spontaneous(4). Motor Response: obeys commands(6). Verbal Response: al5 oriented(5). Total: 15. 04:01 Eye Response: spontaneous(4). Motor Response: obeys commands(6). Verbal Response: sp4 oriented(5). Total: 15. 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 COMPARISON: XR Chest 04/12/2024. PROCEDURE: Axial images through the chest, abdomen and pelvis were generated utilizing 2 mm slice thickness at 2 mm interval reconstruction without the administration of IV contrast. In addition multiplanar reformats in the coronal and sagittal plane were obtained and reviewed. An individualized dose optimization technique, Automated Exposure Control, was utilized for the performed procedure. FINDINGS: CHEST: Lower neck: Visualized thyroid gland and soft tissues are normal. No adenopathy. Lungs: The lung parenchyma demonstrate to be clear. No evidence of airspace or interstitial process. No significant pulmonary nodules and/or masses identified. No focal areas of consolidation. Airways: The trachea mainstem bronchus demonstrate to be unremarkable. Pleural: There are no pleural effusion. No evidence for pneumothorax. Hemidiaphragms are normally positioned. Mediastinum and lymph nodes: No significant mediastinal and/or hilar lymphadenopathy. The axillary regions demonstrate to be clear. Heart: Normal size. No pericardial thickening or effusion. Coronary: No significant coronary artery calcifications. Aorta: The thoracic aorta demonstrate to be within normal limits. No evidence for aneurysm. Pulmonary arteries: The pulmonary arteries were not evaluated due to lack of IV contrast. Osseous structures and chest wall: The visualized portions of the clavicles, humeral heads and bilateral scapulas demonstrate to be within normal limits. No evidence for acute bony injuries. The sternum, thoracic spine, spinous process and bilateral ribs demonstrate to be within normal limits. No evidence for acute bony injuries. There are bilateral breast implants. ABDOMEN AND PELVIS: Liver: The liver demonstrates to be normal, no focal lesions identified. No evidence for solid organ injury.. Gallbladder: The gallbladder demonstrate to be normal. Adrenal glands: The adrenal glands demonstrate to be within normal limits. No evidence for solid organ injury.. Pancreas: The pancreas demonstrate to be within normal limits. No evidence for solid organ injury.. Spleen: The spleen demonstrate to be within normal limits. No evidence for solid organ injury. Kidneys: The kidneys demonstrate normal uptake of contrast media. Grossly the unopacified kidneys demonstrate to be within normal limits. There is no evidence for nephrolithiasis and/or hydronephrosis. No evidence for extravasation of contrast. No evidence for solid organ injury GI: Grossly the unopacified stomach, small bowel and large bowel demonstrate to be within normal limits. No evidence for bowel dilatation and/or free air. The appendix is normal. The left-sided colon demonstrate to be decompressed with no gross abnormalities. No significant peritoneal an/or mesenteric abnormalities. : The urinary bladder demonstrate to be well distended with no gross abnormalities. Genitalia: The uterus demonstrate to be within normal limits. There are normal adnexal structures. Abdominal aorta: The aorta demonstrate to be within normal limits. Retroperitoneum:There is no retroperitoneal lymphadenopathy. No evidence for ascites and/or significant retroperitoneal hemorrhage. Bones: The vertebral bodies of the lumbar spine demonstrate to be within normal limits. No evidence for acute fractures. The spinous processes, transverse processes demonstrate to be unremarkable. The sacrum, sacroiliac joint, iliac bones, superior and inferior pubic rami as well as bilateral hip joints demonstrate to be within normal limits. No evidence for acute bony injuries. Soft tissues: The soft tissues demonstrate to be within normal limits. No symptoms superficial contusion and/or hematomas. IMPRESSION: No evidence for significant acute intrathoracic an/or intraabdominal process allowing for the lack of IV contrast. No evidence for solid organ injury on this noncontrast CT examination of the chest, abdomen and pelvis. . 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 COMPARISON: None. FINDINGS: 2 X-ray views of the right femur (frontal and lateral projections) were performed. Bones: No areas of acute bony injuries were demonstrated. Soft tissues: No significant soft tissue swelling. Joints: No gross articular abnormality is identified. Others: There are no gross intraosseous lesions. No periosteal reaction were seen. IMPRESSION: Unremarkable examination of the right femur. . 04:04 Differential diagnosis: closed head injury, contusion, fracture, multiple trauma, sp4 sprain, strain. Data reviewed: vital signs, nurses notes, old medical records, lab test result(s), CBC, electrolytes, hepatic panel, radiologic studies, CT scan, plain films. Consideration of Admission/Observation Escalation of care including admission/observation considered. ED course: CAT scan and x-ray revealed no signs of acute fractures. Patient stable for discharge home. Patient was able to stand up and ambulate with some assistance. . 12 00:54 Order name: Basic Metabolic Panel; Complete Time: 02:33 sp4 05/01 00:54 Order name: CBC with Diff; Complete Time: 03:57 sp4 05/01 02:43 Order name: CBC Smear Scan; Complete Time: 03:57 EDMS 12 00:55 Order name: CT Chest Abdomen Pelvis W/O Contrast; Complete Time: 20:00 sp4 12 00:55 Order name: Femur Right XRAY; Complete Time: 20:00 sp4 05/01 00:54 Order name: Saline Lock; Complete Time: 01:01 sp4 05/01 00:54 Order name: Labs collected and sent; Complete Time: 01:29 sp4 Administered Medications: 00:56 CANCELLED (Physician Discretion): [id number] grams 100 ml IVPB once; (Note: Albumin 25% sp4 concentration) 00:56 CANCELLED (Physician Discretion): ns 0.9% 500 ml 500 ml IV at 1 bolus once; to be given sp4 as a bolus over 30 minutes 01:29 Drug: NS 0.9% IV 1000 ml IV at 1000 ml once; to be given as a bolus over 60 minutes al5 Route: IV; Rate: 1000 ml; Site: left hand; 03:30 Follow up: Response: No adverse reaction; IV Status: Completed infusion; IV Intake: al5 1000ml 01:30 Drug: morphine IVP or IV 4 mg IVP once over 4 mins Route: IVP; Infused Over: 4 mins; al5 Site: left hand; 02:57 Follow up: Response: No adverse reaction; Pain is decreased al5 01:30 Drug: Ativan IVP 2 mg IVP once Route: IVP; Site: left hand; al5 02:56 Follow up: Response: No adverse reaction; Pain is decreased al5 04:38 Drug: Lidoderm Topical Patch 5 % (700 mg/patch) 1 patches Topical once; leave on for 12 al5 hours; cover most painful area; may cut into smaller pieces Route: Topical; Site: affected area; 06:29 Follow up: Response: No adverse reaction al5 06:20 Drug: [place] PO 10 mg-325 mg 1 tabs PO once Route: PO; al5 06:29 Follow up: Response: No adverse reaction; Medication administered at discharge. al5 06:20 Drug: Methocarbamol PO 1500 mg PO once Route: PO; al5 06:29 Follow up: Response: No adverse reaction; Medication administered at discharge. al5 Disposition Summary: 05/01/24 04:06 Discharge Ordered Notes: Location: Home sp4 Problem: new sp4 Symptoms: have improved sp4 Condition: Stable sp4 Diagnosis - Contusion of hip sp4 - Acute lumbar contusion, acute right buttock contusion, acute fall at home sp4 Followup: sp4 - With: Private Physician - When: 7 - 10 days - Reason: Recheck today's complaints Discharge Instructions: - Discharge Summary Sheet sp4 - Contusion, [id number] sp4 Forms: - Patient Portal Instructions sp4 Prescriptions: - naproxen 500 mg Oral tablet - take 1 tablet ORAL route every 12 hours PRN pain; 50 tablet; Refills: 0, sp4 Product Selection Permitted - Tramadol 50 mg Oral tablet - take 1 tablet ORAL route every 8 hours as needed; 20 tablet; Refills: 0, sp4 Product Selection Permitted - methocarbamol 750 mg Oral tablet - take 2 tablets ORAL route every 8 hours for 2 days PRN muscular soreness; 40 sp4 tablet; Refills: 0, Product Selection Permitted Signatures: Dispatcher [employer] EDMS Kelley Cerna RN RN ha1 Larry Barnes MD MD sp4 Hafsa Quick RN RN al5 Corrections: (The following items were deleted from the chart) 00:56 00:56 Albumin IVPB 25 grams 100 ml IVPB once; (Note: Albumin 25% concentration) sp4 ordered. sp4 00:56 00:56 NS 0.9% IV 500 ml 500 ml IV at 1 bolus once; to be given as a bolus over 30 sp4 minutes ordered. sp4 00:59 00:58 Allergies: No Known Allergies; al5 al5 00:59 00:58 PMHx: depression; al5 al5 00:59 00:58 PMHx: tubal ligation; al5 al5
[2024-05-01] MEDS ORDERED: LIDOCAINE 4% PATCH ONE (04:35)
[2024-05-01 08:06] VITALS: TEMP 97.5
[2024-05-01 08:20] VITALS: BP 105/70; O2SAT 100
== END 2024-05-01 06:29 | disposition home or self-care (01) ==
LOC: ER 00:49
DX: S70.01XA Contusion of right hip, initial encounter (principal); S30.0XXA Contusion of lower back and pelvis, initial encounter; W08.XXXA Fall from other furniture, initial encounter; Y92.009 Unspecified place in unspecified non-institutional (private) residence as the place of occurrence of the external cause
CPT/HCPCS: 96361; 85025; 80048; 36415; 71250; 74176; 73552; 96375; 96374; 99284; J2003; J7030

== ENCOUNTER 2025-01-16 18:25 | Emergency (ER) | payer BC, OTHER ==
--- OUTSIDE RECORDS SUMMARY | 2025-01-16 18:32 | XMS REPORT | Continuity of Care Document ---
Author Name Unknown Address [address] [facility] [address] [place] [address] Organization [facility] [place] Address [address] [facility]. [address] [place] [address] Care Team Providers Care Combined Rail Operator Name Role Phone Kirsten Elias Primary Care Physician + [phone] UNKNOWN, ATTENDING Attending Clinician UnavailKIRSTEN Quinteros Attending Clinician Unavailable Kirsten Elias Attending Clinician [phone] Mell Olmstead MD Attending Clinician [phone] Loraine Rivero MD Attending Clinician + [phone] LORAINE RIVERO Attending Clinician MELL Carson Attending Clinician UnavailMELL Donovan Attending Clinician Unavailyuri Ruiz MD, Kerrie Hyde Attending Clinician [phone] KERRIE RUIZ Attending Clinician Unavailable JERRI FOSTER Attending Clinician Unavailable Doctor Unassigned, [place] Attending Clinician U Kirsten Sarmiento Attending Clinician [phone] Lab, Ang - Db Attending Clinician Unavailable Bari HAT DESIGNERRiver Qiuck Attending Clinician [phone] Unknown, Attending Attending Clinician Unavailab RIVER Neil Attending Clinician Unavailable HUONG WAGONER Attending Clinician Unavailable Ebrahim HAT DESIGNER, Huong Attending Clinician [phone] Doctor Unassigned, [place] Attending Clinician U Miguel Mcmillan DO Attending Clinician [phone] Lab, Adc Fam Pob I Attending Clinician Unavailab le Payers Payer Name Policy Type Policy Number Effective Date Expirati on Date Source [place] [employer] [id number] 00:00:00 [id number] 2023 00:00:00 Problems Condition Name Condition Details Condition Category Status Onset Date Resolution Date Last Treatment Date Treating Clinician Comments Source No known active problems No known active problems Disease [facility] Allergies, Adverse Reactions, Alerts Allergy Name Allergy Type Status Severity Reaction(s) Onset Date Inactive Date Treating Clinician Comments Source NO KNOWN ALLERGIE S Drug Class Active [facility] Social History Social Habit Start Date Stop Date Quantity Comments Source Gender identity Alex jose a [facility] ASSERTION Not [facility] Alcoholic beverage intake 2024-12-09 00:00:00 2024-12-09 00:00:00 Ex-drinker (finding) [facility] History of Social function 2024-05-02 00:00:00 2024-05-02 00:00:[address] [facility] Santana Grant Tobacco use and exposure 2023-12-03 00:00:00 2023-12-03 00:00:00 Smokeless tobacco non-user [facility] Exposure to SARS-CoV-2 (event) 2022-10-09 00:00:00 2022-10-19 13:27:00 Not sure [facility] Tobacco Comment 2022-09-18 00:00:00 2022-09-18 00:00:00 social, not daily [facility] Alcohol intake 2021-09-06 00:00:00 2021-09-06 00:00:00 Ex-drinker (finding) [facility] History of tobacco use 2018-08-24 00:00:00 Cigarette Smoker [facility] Sex assigned at 1985 00:00:00 1985 00:00:00 [facility] Smoking Status Start Date Stop Date Source Tobacco smoking consumption unknown [facility] Ex-smoker 2023-12-03 00:00:00 2023-12-03 00:00:00 [facility] Medications Ordered Medication Name Filled Medication Name Start Date Stop Date Current Medication? Ordering Clinician Indication Dosage Frequency Signature (SIG) Comments Components Source venlafaxine 75 mg extended-re lease tablet 12-09 00:00: 00 Yes [id number] 75mg Take 1 tablet by mouth every morning. [facility] venlafaxine 75 mg extended-re lease tablet 12-02 00:00: 00 12-09 00:00 :00 No [id number] 75mg Take 1 tablet by mouth every morning. [facility] VENLAFAXINE 75 mg extended-re lease tablet 5-05 00:00: 00 12-02 00:00 :00 No [id number] 75mg TAKE 1 TABLET BY MOUTH EVERY DAY IN THE MORNING [facility] venlafaxine 75 mg extended-re lease tablet 1-27 00:00: 00 09-27 00:00 :00 No [id number] 75mg TAKE 1 TABLET BY MOUTH EVERY DAY IN THE MORNING [facility] naproxen 500 mg tablet 2023-0518 13:25: 45 12-09 00:00 :00 No 500mg Take 1 tablet by mouth in the morning and 1 tablet in the evening. Take with meals. [facility] HYDROcodone -acetaminop hen 10-325 mg tablet 2023-05 2-18 00:00: 00 05-20 05:59 :00 No [id number] 1{tbl} Take 1 tablet by mouth every 6 (six) hours as needed (pain) for up to 7 days. Indication s: acute pain [facility] diazePAM (Valium) tablet 5 mg diazePAM (Valium) tablet 5 mg 2023-05 11:10: 00 05-02 11:15 :00 No 5mg 5 mg, Oral, Once, On 05/02/24 at 1110, For 1 dose Memoria beena [facility] HYDROcodone -acetaminop hen ([place]) 7.5-325 MG per tablet 1 tablet HYDROcodone -acetaminop hen ([place]) 7.5-325 MG per tablet 1 tablet 2023-05 11:10: 00 05-02 11:15 :00 No 1{tbl} 1 tablet, Oral, Once, On 05/02/24 at 1110, For 1 dose Sin beena [facility] acetaminoph en-codeine 300-30 mg tablet 2023-05 00:00: 00 05-10 05:59 :00 No 1{tbl} Take 1-2 tablets by mouth. [facility] Methylpredn isolone 4 mg tablet 2023-05 00:00: 00 05-10 05:59 :00 No Follow schedule on package instructio ns [facility] methocarbam oL 750 mg tablet 2023-05 00:00: 00 05-12 00:00 :00 No TAKE 2 TABLETS BY MOUTH EVERY 8 HOURS NEEDED FOR MUSCLE SORENESS FOR 2 DAYS [facility] Venlafaxine 75 mg tablet 12-02 14:48: 05 12-02 00:00 :00 No Take by mouth. [facility] mirtazapine 15 mg tablet 10 14:48: 05 12-02 00:00 :00 No 15mg Take 1 tablet by mouth at bedtime. [facility] Venlafaxine 75 mg tablet 12-02 00:00: 00 06-21 00:00 :00 No [id number] 75mg Take 1 tablet by mouth in the morning. [facility] mirtazapine 15 mg tablet 12-02 00:00: 00 05-05 00:00 :00 No [id number] 15mg Take 1 tablet by mouth at bedtime. [facility] methylPREDN ISolone (MEDROL, ZOYA,) 4 mg tablets 12-02 00:00: 00 05-05 00:00 :00 No [id number] Take by mouth SEE-INSTRU CTIONS. follow package directions [facility] amoxicillin 500 mg capsule 10-19 00:00: 00 10-30 04:59 :00 No [id number] 500mg Take 1 capsule by mouth in the morning and 1 capsule in the evening. Do all this for 10 days. [facility] BUSPIRONE 5 mg tablet 2021-05 00:00: 00 12-02 00:00 :00 No [id number] 5mg TAKE 1 TABLET BY MOUTH 2 (TWO) TIMES DAILY NEEDED (ANXIETY). FOLLOW-UP FOR REFILLS [facility] busPIRone 5 mg tablet 2021-05 00:00: 00 03-28 00:00 :00 No [id number] 5mg Take 1 tablet by mouth 2 (two) times daily as needed (anxiety). Follow-up for refills [facility] SERTraline 50 mg tablet 12-21 00:00: 00 12-02 00:00 :00 No [id number] 50mg Take 1 tablet by mouth in the morning. [facility] busPIRone 5 mg tablet 12-21 00:00: 00 02-27 00:00 :00 No [id number] 5mg Take 1 tablet by mouth 2 (two) times daily as needed (anxiety). [facility] SERTRALINE 50 mg tablet 12-17 00:00: 00 12-21 00:00 :00 No [id number] TAKE 1/2 TAB PO DAILY X 1 WEEK. THEN INCREASE TO 1 TAB PO DAILY. AVOID ABRUPT CESSATION. FOLLOW-UP FOR REFILLS [facility] SERTraline (ZOLOFT) 50 mg tablet 4-14 00:00: 00 10-30 00:00 :00 No [id number] Take 1/2 tab po daily x 1 week. Then increase to 1 tab PO daily. Avoid abrupt cessation. [facility] LOESTRIN FE 1 mg-20 mcg (21)/75 mg (7) tablet 2-21 00:00: 00 12-02 00:00 :00 No Take 1 active tablet orally once daily at the same time. Take active pills only. [facility] Immunizations Ordered Immunization Name Filled Immunization Name Date Status Comments Source TDAP 2023-12-11 00:00:00 Completed [facility] TDAP 2021-09-12 00:00:00 Completed [facility] TDAP 2014-08-24 00:00:00 Completed [facility] TDAP 2014-08-24 00:00:00 Completed [facility] TDAP 2014-08-24 00:00:00 Completed [facility] TDAP 2014-08-24 00:00:00 Completed [facility] TDAP 2014-08-24 00:00:00 Completed [facility] TDAP 2014-08-24 00:00:00 Completed [facility] TDAP 2014-08-24 00:00:00 Completed [facility] TDAP 2014-08-24 00:00:00 Completed [facility] Vital Signs Vital Name Observation Time Observation Value Comments S oursarah Systolic blood pressure 2024-12-09 20:44:00 105 mm[Hg] [facility] Diastolic blood pressure 2024-12-09 20:44:00 71 mm[Hg] [facility] Heart rate 2024-12-09 20:44:00 66 /min [facility] Body height 2024-12-09 20:44:00 160 cm [facility] Body weight 2024-12-09 20:44:00 60.601 kg [facility] BMI 2024-12-09 20:44:00 23.67 kg/m2 [facility] Oxygen saturation in Arterial blood by Pulse oximetry 2024-12-09 20:44:00 100 /min [facility] Systolic blood pressure 2024-05-12 19:17:00 131 mm[Hg] Pandora o [facility] Diastolic blood pressure 2024-05-12 19:17:00 81 mm[Hg] [facility] Heart rate 2024-05-12 19:17:00 70 /min [facility] Body height 2024-05-12 19:17:00 160 cm [facility] Body weight 2024-05-12 19:17:00 62.596 kg Univ [facility] BMI 2024-05-12 19:17:00 24.45 kg/m2 Univ [facility] Systolic blood pressure 2024-05-06 19:39:00 132 mm[Hg] Pandora o [facility] Diastolic blood pressure 2024-05-06 19:39:00 84 mm[Hg] [facility] Heart rate 2024-05-06 19:38:00 70 /min Unive [facility] Respiratory rate 2024-05-06 19:38:00 18 /min [facility] Body height 2024-05-06 19:38:00 160 cm Univ [facility] Body weight 2024-05-06 19:38:00 63.231 kg Univ [facility] BMI 2024-05-06 19:38:00 24.69 kg/m2 Univ [facility] Oxygen saturation in Arterial blood by Pulse oximetry 2024-05-06 19:38:00 99 /min [facility] Systolic blood pressure 2024-05-05 17:28:00 119 mm[Hg] [facility] Diastolic blood pressure 2024-05-05 17:28:00 68 mm[Hg] [facility] Heart rate 2024-05-05 17:28:00 69 /min Unive [facility] Body height 2024-05-05 17:28:00 160 cm [facility] Body weight 2024-05-05 17:28:00 64.411 kg Univ [facility] BMI 2024-05-05 17:28:00 25.15 kg/m2 Univ [facility] Oxygen saturation in Arterial blood by Pulse oximetry 2024-05-05 17:28:00 97 /min [facility] Systolic blood pressure 2024-05-02 12:41:00 122 mm[Hg] [facility] Diastolic blood pressure 2024-05-02 12:41:00 76 mm[Hg] [facility] Heart rate 2024-05-02 12:41:00 70 /min [facility] Body temperature 2024-05-02 12:41:[address] [facility] Respiratory rate 2024-05-02 12:41:00 18 /min [facility] Oxygen saturation in Arterial blood by Pulse oximetry 2024-05-02 12:41:00 99 /min [facility] Body height 2024-05-02 10:38:00 160 cm Alex rial [facility] Body weight 2024-05-02 10:38:00 63.504 kg Alex [facility] BMI 2024-05-02 10:38:00 24.80 kg/m2 Alex rial [facility] Systolic blood pressure 2024-05-02 12:41:00 122 mm[Hg] [facility] Diastolic blood pressure 2024-05-02 12:41:00 76 mm[Hg] [facility] Heart rate 2024-05-02 12:41:00 70 /min [facility] Body temperature 2024-05-02 12:41:[address] [facility] Respiratory rate 2024-05-02 12:41:00 18 /min [facility] Oxygen saturation in Arterial blood by Pulse oximetry 2024-05-02 12:41:00 99 /min [facility] Body height 2024-05-02 10:38:00 160 cm Alex rial [facility] Body weight 2024-05-02 10:38:00 63.504 kg Alex rial [facility] BMI 2024-05-02 10:38:00 24.80 kg/m2 Alex [facility] Systolic blood pressure 2023-12-03 19:13:00 111 mm[Hg] [facility] Diastolic blood pressure 2023-12-03 19:13:00 70 mm[Hg] [facility] Heart rate 2023-12-03 19:13:00 62 /min Unive [facility] Body temperature 2023-12-03 19:13:00 36.72 Gloria [facility] Respiratory rate 2023-12-03 19:13:00 18 /min [facility] Body height 2023-12-03 19:13:00 157.5 cm [facility] Body weight 2023-12-03 19:13:00 66.724 kg Univ [facility] BMI 2023-12-03 19:13:00 26.90 kg/m2 [facility] Oxygen saturation in Arterial blood by Pulse oximetry 2023-12-03 19:13:00 99 /min [facility] Systolic blood pressure 2022-10-19 18:47:00 113 mm[Hg] [facility] Diastolic blood pressure 2022-10-19 18:47:00 72 mm[Hg] [facility] Heart rate 2022-10-19 18:47:00 84 /min Unive [facility] Body temperature 2022-10-19 18:47:00 36.67 Gloria [facility] Respiratory rate 2022-10-19 18:47:00 16 /min [facility] Body height 2022-10-19 18:47:00 160 cm [facility] Body weight 2022-10-19 18:47:00 59.784 kg [facility] BMI 2022-10-19 18:47:00 23.35 kg/m2 [facility] Oxygen saturation in Arterial blood by Pulse oximetry 2022-10-19 18:47:00 99 /min [facility] Systolic blood pressure 2022-09-18 14:53:00 111 mm[Hg] [facility] Diastolic blood pressure 2022-09-18 14:53:00 74 mm[Hg] [facility] Heart rate 2022-09-18 14:53:00 70 /min Unive [facility] Body temperature 2022-09-18 14:53:00 36.94 Gloria [facility] Respiratory rate 2022-09-18 14:53:00 16 /min [facility] Body height 2022-09-18 14:53:00 160 cm [facility] Body weight 2022-09-18 14:53:00 62.778 kg [facility] BMI 2022-09-18 14:53:00 24.52 kg/m2 [facility] Oxygen saturation in Arterial blood by Pulse oximetry 2022-09-18 14:53:00 100 /min [facility] Systolic blood pressure 2021-12-21 12:05:00 120 mm[Hg] [facility] Diastolic blood pressure 2021-12-21 12:05:00 81 mm[Hg] [facility] Heart rate 2021-12-21 12:05:00 60 /min [facility] Body height 2021-12-21 12:05:00 160 cm [facility] Body weight 2021-12-21 12:05:00 58.514 kg [facility] BMI 2021-12-21 12:05:00 22.85 kg/m2 [facility] Oxygen saturation in Arterial blood by Pulse oximetry 2021-12-21 12:05:00 99 /min [facility] Procedures Procedure Date / Time Performed Performing Clinician Source CT HIP RIGHT WO IV CONTRAST 2024-05-02 11:30:00 Kavon Hernandez [facility] VITAMIN B6, PLASMA 2023-12-03 20:10:00 Kirsten Sánchez [facility] MAGNESIUM 2023-12-03 20:10:00 Kirsten Sánchez [facility] VITAMIN B12, LEVEL 2023-12-03 20:10:00 Kirsten Sánchez [facility] FOLATE 2023-12-03 20:10:00 Kirsten Sánchez [facility] COMP. METABOLIC PANEL (70394) 2023-12-03 20:10:00 Kirsten Sánchez [facility] LIPID PANEL (24326)(TOTAL CHOLESTEROL, TRIGLYCERIDES, HDL) 2023-12-03 20:10:00 Kirsten Sánchez [facility] CBC WITH DIFF 2023-12-03 20:10:00 Kirsten Sánchez [facility] GLYCOSYLATED HEMOGLOBIN (A1C) 2023-12-03 20:10:00 Kirsten Sánchez [facility] VITAMIN D, 25-OH 2023-12-03 20:10:00 Kirsten Sánchez [facility] POCT MOLECULAR STREP 2022-10-19 18:45:00 Unknown, Caden garcia [facility] XR HAND 3+ VW RIGHT 2022-09-18 15:21:59 Huong Wagoner [facility] ASSIGNMENT OF BENEFITS 2022-09-18 14:44:28 Docto r Unassigned, [place] [facility] Encounters Start Date/Time End Date/Time Encounter Type Admission Type Attending [facility] Care Facility Care Department Encounter ID Source 2021-03-26 08:34:59 Emergency [facility] [id number] [facility] 2025-01-16 14:00:00 2025-01-16 14:00:00 Outpatient R UNKNOWN, ATTENDING [facility] [id number] [facility] 2024-12-09 16:30:00 2024-12-09 16:48:53 Cleaner Laboratory Equipment [facility] 1.2.840.114 350.1.13.10 4.2.7.2.686 [id number] [facility] 2024-12-09 16:00:00 2024-12-09 16:02:17 Office Visit R KIRSTEN SÁNCHEZ [facility] 1.2.840.114 350.1.13.10 4.2.7.2.686 [id number] [facility] 2024-11-29 00:00:00 2024-12-03 15:21:30 Telephone Kirsten Sánchez [facility] 1.2.840.114 350.1.13.10 4.2.7.2.686 [id number] [facility] 2024-09-26 00:00:00 2024-09-27 14:14:14 Refill Kirsten Sánchez [facility] 1.2.840.114 350.1.13.10 4.2.7.2.686 [id number] [facility] 2024-07-16 16:40:00 2024-07-16 16:40:00 Outpatient R UNKNOWN, ATTENDING [facility] [id number] [facility] 2024-06-19 00:00:00 2024-06-30 07:45:56 Refill Kirsten Sánchez [facility] 1.2.840.114 350.1.13.10 4.2.7.2.686 [id number] [facility] 2024-06-20 00:00:00 2024-06-21 09:09:41 Refill Kirsten Sánchez [facility] 1.2.840.114 350.1.13.10 4.2.7.2.686 [id number] [facility] 2024-06-18 00:00:00 2024-06-18 14:42:36 Letter (Out) [facility] ([facility]) 1.2.840.114 350.1.13.10 4.2.7.2.686 [id number] [facility] 2024-05-10 00:00:00 2024-06-12 18:19:47 Patient Secure Msg Mell Olmstead [facility] 1.2.840.114 350.1.13.10 4.2.7.2.686 [id number] [facility] 2024-05-10 00:00:00 2024-06-12 18:19:23 Patient Secure Msg Mell Olmstead [facility] 1.2.840.114 350.1.13.10 4.2.7.2.686 [id number] [facility] 2024-05-12 00:00:00 2024-06-12 18:14:52 Patient Secure Msg Loraine Rivero [facility] 1.2.840.114 350.1.13.10 4.2.7.2.686 [id number] [facility] 2024-06-09 00:00:00 2024-06-09 14:56:56 Letter (Out) [facility] ([place]) 1.2.840.114 350.1.13.10 4.2.7.2.686 [id number] [facility] 2024-06-09 00:00:00 2024-06-09 14:26:29 Telephone Kirsten S[facility]chez [facility] 1.2.840.114 350.1.13.10 4.2.7.2.686 [id number] [facility] 2024-06-09 00:00:00 2024-06-09 13:54:47 Letter (Out) [facility] ([place]) 1.2.840.114 350.1.13.10 4.2.7.2.686 [id number] [facility] 2024-06-02 00:00:00 2024-06-02 07:15:46 Telephone Kirsten Sánchez [facility] 1.2.840.114 350.1.13.10 4.2.7.2.686 [id number] [facility] 2024-05-31 00:00:00 2024-06-01 10:23:43 Telephone Loraien Rivero [facility] 1.2.840.114 350.1.13.10 4.2.7.2.686 [id number] [facility] 2024-05-27 00:00:00 2024-05-27 00:00:00 Outpatient LORAINE MANUEL [facility] [id number] [facility] 2024-05-24 00:00:00 2024-05-25 07:35:33 Tele[facility] 1.2.840.114 350.1.13.10 4.2.7.2.686 [id number] [facility] 2024-05-13 00:00:00 2024-05-20 08:41:07 Telephone Sixto Kirst[facility]pando [facility] 1.2.840.114 350.1.13.10 4.2.7.2.686 [id number] [facility] 2024-05-11 00:00:00 2024-05-14 12:37:01 Telephone SixtoKirsten roper [facility] 1.2.840.114 350.1.13.10 4.2.7.2.686 [id number] [facility] 2024-05-12 13:30:00 2024-05-12 13:45:00 Office Visit [facility] 1.2.840.114 350.1.13.10 4.2.7.2.686 [id number] [facility] 2024-05-12 13:30:00 2024-05-12 13:30:00 Outpatient LORAINE MANUEL [facility] [id number] [facility] 2024-05-11 00:00:00 2024-05-11 09:37:23 Telephone Sixto, Kirsten A [facility] 1.2840.114 350.1.13.10 4.2.7.2.686 [id number] [facility] 2024-05-06 00:00:00 2024-05-06 14:35:42 Letter (Out) Mell Olmstead [facility] 1.2.840.114 350.1.13.10 4.2.7.2.686 [id number] [facility] 2024-05-06 13:15:00 2024-05-06 14:23:27 Outpatient R OLMSTEADMELL CRAIG [facility] [id number] [facility] 2024-05-06 13:15:00 2024-05-06 14:23:27 Office Visit Mell Olmstead [facility] 1.20.114 350.1.13.10 4.2.7.2.686 [id number] [facility] 2024-05-05 11:00:00 2024-05-05 11:51:39 Outpatient R CATHI SÁNCHEZLIE [facility] [id number] [facility] 2024-05-05 11:00:00 2024-05-05 11:51:39 Office Visit Kirsten Sánchez [facility] 1.2840.114 350.1.13.10 4.2.7.2.686 [id number] [facility] 2024-05-02 10:37:00 2024-05-02 13:18:00 Emergency NyasiaKerrie [facility] 1.2840.114 350.1.13.70 8.2.7.2.686 [id number] [facility] 2024-05-02 10:37:00 2024-05-02 13:18:00 Emergency Emergency KERRIE RUIZ [facility] General Medicine [id number] [facility] 2024-04-15 16:30:00 2024-04-15 16:30:00 Outpatient R SIXTO, KIRSTEN [facility] [id number] [facility] 2024-04-12 13:40:00 2024-04-12 13:40:00 Outpatient R JERRI FOSTER [facility] [id number] [facility] 2023-12-04 00:00:00 2024-01-10 18:25:03 Patient Secure Msg Doctor Unassigned, [place] Doctor Unassigned, [place] [facility] 1.2840.114 350.1.13.10 4.2.7.2.686 [id number] [facility] 2023-12-09 00:00:00 2024-01-10 18:20:03 Patient Secure Msg Doctor Unassigned, [place] Doctor Unassigned, [place] [facility] HOSPITALE?[facility] 1.2840.114 350.1.13.10 4.2.7.2.686 [id number] [facility] 2023-12-11 00:00:00 2023-12-17 08:20:10 Telephone Kirsten Sánchez A [facility] BU[facility] 1.2.840.114 350.1.13.10 4.2.7.2.686 [id number] [facility] 2023-12-11 00:00:00 2023-12-17 08:20:03 Patient Secure Msg Kirsten Sánchez A [facility] 1.2.840.114 350.1.13.10 4.2.7.2.686 [id number] [facility] 2023-12-08 00:00:00 2023-12-08 10:46:59 Patient Secure Msg [facility]irsten [facility] 1.2.840.114 350.1.13.10 4.2.7.2.686 [id number] [facility] 2023-12-03 15:18:10 2023-12-03 23:59:00 Outpatient R SIXTOCATHI ROPERLIE [facility] [id number] [facility] 2023-12-03 15:18:10 2023-12-03 23:59:00 Hospital Encounter Cathi Sánchezlijaneen Villalpando [facility] BU[facility] 1.2.840.114 350.1.13.10 4.2.7.2.686 [id number] [facility] 2023-12-03 15:00:00 2023-12-03 15:13:05 Cleaner Laboratory Equipment Visit Lab, Ang - Db Cathi Sánchezflorentino Villalpando [facility] BU[facility] 1.2.840.114 350.1.13.10 4.2.7.2.686 [id number] [facility] 2023-12-03 14:30:00 2023-12-03 15:00:18 Office Visit Kirsten [facility] 1.2840.114 350.1.13.10 4.2.7.2.686 [id number] [facility] 2022-10-19 14:20:00 2022-10-19 14:40:00 Urgent Care [place] Unknown, Attending [facility] 1.2.840.114 350.1.13.10 4.2.7.2.686 [id number] [facility] 2022-10-19 14:20:00 2022-10-19 14:08:07 Outpatient R RIVER GROSSMAN [facility] [id number] [facility] 2022-09-18 10:04:19 2022-09-18 23:59:00 Outpatient R HUONG WAGONER [facility] [id number] [facility] 2022-09-18 10:04:19 2022-09-18 23:59:00 Hospital Encounter Huong Wagoner [facility] 1.2840.114 350.1.13.10 4.2.7.2.686 [id number] [facility] 2022-09-18 10:00:00 2022-09-18 10:20:00 Urgent Care Huong Wagoner Unknown, Attending [facility] MED[facility] OFFICE BUILD[facility] 1.84114 350.1.13.10 4.2.7.2.686 [id number] [facility] 2022-09-18 00:00:00 2022-09-18 00:00:00 Orders Only Doctor Unassigned, [place] [facility] 1..114 350.1.13.10 4.2.7.2.686 [id number] [facility] 2022-03-22 00:00:00 2022-03-22 00:00:00 Refill Kirsten Sánchez [facility] 1.114 350.1.13.10 4.2.7.2.686 [id number] [facility] 2022-02-20 00:00:00 2022-02-20 00:00:00 Refill Kirsten S[facility]chez [facility] 1.84114 350.1.13.10 4.2.7.2.686 [id number] [facility] 2022-01-12 00:00:00 2022-01-12 00:00:00 Refill Kirsten S[facility]chez [facility] OFF[facility] BU[facility] 1.2.840.114 350.1.13.10 4.2.7.2.686 [id number] [facility] 2021-12-21 07:00:00 2021-12-21 07:35:54 Outpatient R SIXTO, KIRSTEN [facility] [id number] [facility] 2021-12-21 07:00:00 2021-12-21 07:35:54 Office Visit Kirsten [facility] 1.2.840.114 350.1.13.10 4.2.7.2.686 [id number] [facility] 2021-12-13 00:00:00 2021-12-13 00:00:00 Refill Kirsten [facility] 1.2.840.114 350.1.13.10 4.2.7.2.686 [id number] [facility] 2021-12-06 00:00:00 2021-12-06 00:00:00 Refill Kirsten [facility] 1.2.840.114 350.1.13.10 4.2.7.2.686 [id number] [facility] 2021-11-09 08:30:00 2021-11-09 08:30:00 Outpatient R MITZY SÁNCHEZE [facility] [id number] [facility] 2021-10-30 00:00:00 2021-10-30 00:00:00 Refill [facility] 1.2.840.114 350.1.13.10 4.2.7.2.686 [id number] [facility] 2021-09-12 00:00:00 2021-09-12 00:00:00 Patient Secure Msg Doctor Unassigned, [place] [facility] 1.20.114 350.1.13.10 4.2.7.2.686 [id number] [facility] 2021-09-06 09:00:00 2021-09-06 09:15:00 Cleaner Laboratory Equipment Visit Lab, Ang - Db Kirsten S[facility]chez [facility] BU[facility] 1.84.114 350.1.13.10 4.2.7.2.686 [id number] [facility] 2021-09-06 08:00:00 2021-09-06 08:57:35 Outpatient R KIRSTEN SÁNCHEZ [facility] [id number] [facility] 2021-09-06 08:00:00 2021-09-06 08:57:35 Outpatient R KIRSTEN SÁNCHEZ [facility] [id number] [facility] 2021-09-06 08:00:00 2021-09-06 08:57:35 [facility] 1.84.114 350.1.13.10 4.2.7.2.686 [id number] [facility] 2020-12-08 03:49:00 2020-12-08 05:23:00 Emergency Miguel Rodriguez [facility] 1.84.114 350.1.13.10 4.2.7.2.686 [id number] [facility] 2020-06-28 10:20:00 2020-06-28 10:20:00 Outpatient R [facility] [id number] [facility] 2020-06-14 10:20:12 2020-06-14 10:40:12 Laboratory Only Lab, [facility] Pob I Kirsten Sánchez [facility] Office Building One 1.840.114 350.1.13.10 4.2.7.2.686 [id number] [facility] 2020-06-14 10:40:00 2020-06-14 10:40:00 Outpatient R KIRSTEN SÁNCHEZ [facility] [id number] [facility] 2020-01-17 00:00:00 2020-01-17 00:00:00 Letter (Out) Doctor Unassigned, [place] [facility] 1.840.114 350.1.13.10 4.2.7.2.686 [id number] [facility] Results Test Description Test Time Test Comments Results Result Co mments Source [facility] Notes Date/Time Note Provider Source 2024-12-03 11:09:53 Contacted patient and scheduled a F/U for medication refill. This is for documentation purposes, please close this encounter. Hafsa Rivera [facility] 2024-12-02 15:17:49 PSS please reach out to patient for follow up appointment. Must be seen for further refills. Per DEIRDRE Hall Follow-up for refills and fasting labs. Doris Conklin MA [facility] 2024-12-02 15:13:27 Follow-up for refills and fasting labs. [facility] 2024-11-30 17:16:36 Patient lost her last bottle when her bathroom flooded and she will need refills please. Outcome:Venlafaxine HCl ER 75MG er tablets Approved today by [employer] 2017 CaseId:[id number];Status:Appr laxmi;Review Type:Prior Auth;Coverage Start Date:10/31/2024;Coverage End Date:11/30/2025; Effective Date: 10/31/2024 Authorization Expiration Date: 11/30/2025 [facility] 2024-11-29 13:19:12 Received PA MAZARIEGOS : [id number] . Placed in Providers Box For Review . Padmini Padron [facility] 2024-09-27 14:05:55 Images from the original note were not included. Notes: 06/21/24 Last Refilled: [id number] Recent Visits Date Type Provider Dept 05/12/24 Office Visit Loraine Rivero MD [facility] 05/05/24 Office Visit Kirsten Sánchez PA [facility] 12/03/23 Office Visit Kirsten Sánchez PA [facility] Showing recent visits within past 540 days with a meds authorizing provider and meeting all other requirements Future Appointments No visits were found meeting these conditions. Showing future appointments within next 150 days with a meds authorizing provider and meeting all other requirements Name from pharmacy: VENLAFAXINE HCL ER 75 MG TAB Will file in chart as: VENLAFAXINE 75 mg extended-release tablet Sig: TAKE 1 TABLET BY MOUTH EVERY DAY IN THE MORNING Disp: 90 tablet Refills: 0 (Pharmacy requested: Not specified) Start: 09/26/2024 Class: eRX Non-formulary For: Anxiety and depression, Sleeping difficulty Last ordered: 3 months ago (06/21/2024) by DEIRDRE Butcher Last refill: 06/21/2024 Rx #: [id number] Psychiatry: Antidepressants Gmmwcm9509/26/2024 06:58 AM Protocol Details Manual Review: Verify no changes in dose in the last 3 months Valid encounter within last 12 months To be filled at: [facility]/pharmacy #[id number] Krystle Radford MA [facility] 2024-06-21 09:29:33 Images from the original note were not included. Please review and advise This medication is not on medication list, it may be a historical mediation. Name from pharmacy: MIRTAZAPINE 15 MG TABLET Will file in chart as: MIRTAZAPINE 15 mg tablet Sig: TAKE 1 TABLET BY MOUTH EVERYDAY AT BEDTIME Disp: 90 tablet Refills: Not specified Start: 06/19/2024 Class: eRX Last refill: 03/24/2024 Psychiatry: Antidepressants Zvalpk6806/19/2024 07:14 AM Protocol Details Manual Review: Verify no changes in dose in the last 3 months Valid encounter within last 12 months To be filled at: [facility]/pharmacy #[id number] Recent Visits Date Type Provider Dept 05/12/24 Office Visit Loraine Rivero MD [facility] 05/05/24 Office Visit Kirsten Sánchez PA [facility] 12/03/23 Office Visit Kirsten Sánchez PA [facility] Showing recent visits within past 540 days with a meds authorizing provider and meeting all other requirements Future Appointments No visits were found meeting these conditions. Showing future appointments within next 150 days with a meds authorizing provider and meeting all other requirements [place]URNER Doris Conklin MA [facility] 2024-06-21 09:04:05 Images from the original note were not included. Name from pharmacy: VENLAFAXINE HCL ER 75 MG TAB Will file in chart as: VENLAFAXINE 75 mg extended-release tablet Sig: TAKE 1 TABLET BY MOUTH EVERY DAY IN THE MORNING Disp: 90 tablet Refills: 1 (Pharmacy requested: Not specified) Start: 06/20/2024 Class: eRX For: Anxiety and depression, Sleeping difficulty Last ordered: 6 months ago (12/03/2023) by DEIRDRE Butcher Last refill: 03/24/2024 Rx #: [id number] Psychiatry: Antidepressants Jweyav9206/20/2024 07:01 AM Protocol Details Manual Review: Verify no changes in dose in the last 3 months Valid encounter within last 12 months Recent Visits Date Type Provider Dept 05/12/24 Office Visit Loraine Rivero MD [facility] 05/05/24 Office Visit Kirsten Sánchez PA [facility] 12/03/23 Office Visit Kirsten Sánchez PA [facility] Showing recent visits within past 540 days with a meds authorizing provider and meeting all other requirements Future Appointments No visits were found meeting these conditions. Showing future appointments within next 150 days with a meds authorizing provider and meeting all other requirements NA Conklin MA [facility] 2024-06-09 14:07:28 Please review, complete, and sign if appropriate. NA Foster LVN [facility] 2024-06-09 13:57:[address] Kiran Vega, Pain Management is requesting a referral for pt lower back pain and will be pt first initial visit. Diagnosis code: M54.9 NPI # [id number] [id number] [phone] FAX [phone] Apt: 06/17/24 at 2:15pm NA Hatch [facility] 2024-06-02 07:10:50 ----- Message ----- From: Malena Mayberryvelasquez Lorenzana Sent: 05/12/2024 4:08 PM CANE BURNER To: Cynthia Maynard; Ritu Morales; * Subject: PCP Referral order request Claude, The patient has been provided a referral from Dr Mell Olmstead in Orthopedics to Dr Liz Sandra in Physical Therapy. The patient was seen on 05/11/2024 but the referral can still be backdated 5 days to cover the visit, once the PCP places the referral order. The authorization team is unable to move forward with processing the referral. The patient's HMO insurance guidelines requires for the designated primary care provider to refer the patient to an in-network doctor or specialist. Please submit a referral for diagnosis, M53.3, G89.29 (ICD-10-CM) - Chronic right SI joint pain. Last PCP office visit: 05/05/2024 Thank you, [facility] Referral Coordination Center . [facility] 2024-06-01 10:23:15 Spoke to patient, she will [facility] appointment [facility] the [place] [facility] [place] Adali Case [facility] 2024-05-31 16:19:21 Please assist with making appointment to see Kirsten Sánchez per shayne he will not be doing the Peer to Peer [facility] 2024-05-31 15:59:27 She will need to see her PCP to be reevaluated. [facility] FM-FAMILY MEDICINE STAFF [facility] 2024-05-31 14:36:00 Padma Murrieta is a 39 year old female Isreal with [employer] is calling stating that a peer to peer needs to be done in order for the pt to get approved for her MRI. Please call [phone] for peer to peer. [facility] 2024-05-31 12:03:37 noam with [employer] calling to to see if dr was able to do peer to peer since mri has been denied [phone] [place]URNER Myesha Hodge [facility] 2024-05-25 12:56:06 Did not order [facility] 2024-05-24 09:55:31 Padma Murrieta is a 39 year old female Isreal with [employer] is calling stating that a peer to peer needs to be done in order for the pt to get approved for her MRI. Please call [phone] for peer to peer. B[facility]NER Maddie Ugalde [facility] 2024-05-14 13:43:40 Forms recd and pending Provider review. BURNER Shawna Foster LVN [facility] 2024-05-13 11:56:[address] Rivero BURNER CAPACITOR TESTER-FAMILY MIDLEVEL PROVIDER [facility] 2024-05-11 12:42:03 Please review and advise. TOMASZ 05/05/24 BURNER Shawna Foster LVN [facility] 2024-05-11 10:55:14 Patient is requesting a referral to: Dept: MRI Reason for referral: joint pain/lower back spine Duration of problem: on going Internal / External referral: internal Name of provider / location patient requesting: [facility] Phone number: [phone] Fax number: [phone] Appt already scheduled?: no If yes, date of appt.: na NA Hodge [facility] 2024-05-11 09:36:48 Forms pending. Provider to review once recd. NA Foster LVN [facility] 2024-05-11 09:34:11 Pt calling to let clinic know the her physical therapist is faxing over paper work for a referral NA Hodge [facility] 2024-05-10 10:02:43 Routing encounter to providers to review and address concerns. Drae Radford 05/10/2024 10:02 AM NA Radford [facility] 2024-05-02 13:24:59 [facility] * Calculated C-SSRS Risk Score (Lifetime/Recent) Answer Date of Assessment Author No Risk Indicated 05/02/2024 11:20 AM Andi Allen RN * [place] Suicide Severity Rating Scale (Screener/Recent Self-Report) Question Answer Date of Assessment Author 1. Wish to be (Past 1 Month) No 024 11:20 AM Andi Allen, RN 2. Non-Specific Active Suici adonis Thoughts (Past 1 Month) No 05/02/2024 11:20 AM CANE BURNER Rolan, Brade n, RN 6. Suicidal Behavior (Lifetime) No 11:20 AM CANE BURNER Andi Gongora RN [facility]14 13:24:59 [place] [address]-12-08 13:24:59 Diagnosis Accidental fall, subsequent encounter - Primary Acute right hip pain [place] [address]-12-08 13:24:59 [place] 278[address]-07-23 17:00:31 Please reference result note. Thanks! T [facility]61-43 15:41:22 Result note sent. :) [place] 390814-07-19 10:45:07 Pt is checking on status results of xray Please advise Jil CernaGood Samaritan HospitalAidyuk1963-44-65 08:47:01 Please review and advise. XR Cervical Spine 3 Vw completed on 12/03/23 Shawna Foster [facility]2024-07-18 14:55:17 Padma Murrieta is a 38 year old female Pt requesting the results of her cervical xray. Pt contact: [phone] (home) Chauncey AlejandreGood Samaritan HospitalWdxuxi3662-58-10 15:00:00 Images from the original note were not included. Venipuncture collection performed by clean technique on the left anticubitus. Total of 1 attempts were made. Slight pressure and a bandage/dressing were applied to the site(s). The patient experienced no complications. The following specimens were processed according to instructions and sent to [facility] laboratories per lab order on 12/03/2023 : LT BLUE SST 3 RED LAV 2 PPT DK GREEN ([facility]) 05/26 DK GREEN (Sod[facility]) DIETRICH DK BLUE (K2) DK BLUE (S) ACD Blood Culture NIPT/NTD [facility]
--- NOTE | 2025-01-16 19:47 | RAD REPORT ---
EXAMINATION: CT MAXILLOFACIAL WITHOUT CONTRAST CLINICAL INDICATION: Facial pain. Status post fall TECHNIQUE: Axial images were obtained through the facial bones and orbits without intravenous contras t. Sagittal and coronal reconstructions were created from the data. One or more of the following dose reduction techniques were used: Automated exposure control, adjustment of the mA and/or kV accor ding to patient size, and/or iterative reconstruction. Unless otherwise specified, incidental findings do not require dedicated imaging follow-up. COMPARISON: No prior exam. FINDINGS: No fracture seen. No TMJ dislocation. Right periorbital swelling. Globes are normal size and density. Minimal fluid ethmoid sinus. IMPRESSION: A fracture is not seen
--- NOTE | 2025-01-16 19:48 | RAD REPORT ---
EXAMINATION: CT HEAD WITHOUT CONTRAST CT CERVICAL SPINE WITHOUT CONTRAST CLINICAL INDICATION: Head and neck injury status post fall. Head and neck pain TECHNIQUE: Axial CT images from the skull base to the vertex without intravenous contrast. Axial CT i mages through the cervical spine were obtained without intravenous contrast. Sagittal and coronal reformatted images were created from the data set. Coronal and sagittal reformatted images were creat ed from the data set. One or more of the following dose reduction techniques were used: Automated exposure control, adjustment of the mA and/or kV according to patient size, and/or iterative reconstr uction. Unless otherwise specified, incidental findings do not require dedicated imaging follow-up. [id number]. Comparison: none FINDINGS: An intracranial bleed is not seen. Ventricles are normal in caliber. No significant hypodensity within the brain No extra-axial fluid collection. Right periorbital swelling. No fracture or dislocation is seen involving the cervical spine. Calcified lymph nodes right neck IMPRESSION: No acute intracranial abnormality noted A cervical fracture is not seen. 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
--- NOTE | 2025-01-16 19:56 | RAD REPORT ---
EXAM:Thorax Wo Con CLINICAL INDICATION: Chest pain status post fall TECHNIQUE: CT chest performed.. Axial, sagittal and coronal reconstructions were obtained. One or mor e of the following dose reduction techniques were used: Automated exposure control, adjustment of the mA and/or kV according to the patient size, and/or iterative reconstruction. Unless otherwise specified, incidental findings do not require dedicated imaging follow-up. [id number]. COMPARISON: 2023 FINDINGS: Evaluation of the mediastinum, jose alberto and vessels is limited secondary to lack of IV contrast administr ation. A pulmonary contusion not noted. No mediastinal hematoma. Bilateral breast implants No pleural effusion. No pericardial effusion IMPRESSION: No acute traumatic injury visualized
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
[2025-01-16 21:01] VITALS: TEMP 97.6
[2025-01-16 21:03] VITALS: BP 120/79; O2SAT 99
== END 2025-01-16 20:23 | disposition home or self-care (01) ==
LOC: ER 18:25
DX: S00.11XA Contusion of right eyelid and periocular area, initial encounter (principal); S20.221A Contusion of right back wall of thorax, initial encounter; W18.30XA Fall on same level, unspecified, initial encounter; Y92.814 Boat as the place of occurrence of the external cause
CPT/HCPCS: 70450; 70486; 71250; 72125; 76377; 99283